=== PATIENT | male | born 1980 | race Two or more races ===

== ENCOUNTER 2024-12-11 13:34 | Outpatient (REF) | payer MEDICAID, SELFPAY ==
--- NOTE | ~2024-12-11 | XR_ITS ---
EXAMINATION: XR RIBS 3 VIEWS MINIMUM WITH CHEST LEFT HISTORY: INJURY COMPARISON: There are no prior studies available for comparison. FINDINGS: PA views of the chest and 3 views of the left ribs are submitted. A left-sided port is noted with its tip in the superior vena cava. The lungs are expanded and clear. There is no pleural effusion, pneumothorax, or pulmonary vascular congestion. The heart is normal in size. The bones are intact. No left-sided rib fracture is seen. XR/XR ribs LT min 3V w CXR1V IMPRESSION: No evidence of fracture of the left ribs. Electronically signed by: Sunil Quick MD 12/11/2024 02:21 PM EDT
--- OUTSIDE RECORDS SUMMARY | 2024-12-11 14:22 | XMS_ITS | Encounter Summary ---
Author Organization [employer] Address [address] [facility] [address] [place] [address] Care Team Providers Care Instructor Military Science Name Role Phone Unavailable Primary Care Provider Unavailabl e Encounter Details Date Type Department Care Team (Latest Contact Info) Description 12/11/2024 Travel Social History Tobacco Use Types Packs/Day Years Used Date Smoking Tobacco: Every Day Cigarettes Passive Smoke Exposure: Past Smokeless Tobacco: Never Alcohol Use Standard Drinks/Week Comments Yes 0 (1 standard drink = 0.6 oz pur e alcohol) Sex and Gender Information Value Date Recorded Sex Assigned at Male 09/18/2024 11:22 AM EDT Legal Sex Male 11:15 AM EDT Gender Identity Male 09/18/2024 11:22 AM EDT Sexual Orientation Straight 09/18/2024 11 :22 AM EDT documented as of this encounter Plan of Treatment Upcoming Encounters Date Type Department Care Team (Late st Contact Info) Description 12/28/2024 9:00 AM EDT Office Visit [facility] MEDICINE [address] [place] [address] Susannah Ryan MD [address] [place] [phone] 01/02/2025 3:15 PM EDT Office Visit [facility] ADULT DENTAL [address] [place] [address] Rudolph Carrero, BRANDEE [address] [place] [address] documented as of this encounter Visit Diagnoses Not on filedocumented in this encounter Care Teams Instructor Military Science Relationship Specialty Start Date End Date Horacio Brooks MD [facility] Hematology/Oncology 12/11/24 documented as of this encounter
== END 2024-12-11 13:35 | disposition home or self-care (01) ==
LOC: HO.HHCX 13:34
PROVIDERS: Visit Provider Family Medicine
DX: S20.212A Contusion of left front wall of thorax, initial encounter (principal)
CPT/HCPCS: 71101

== ENCOUNTER → 2024-12-11 13:40 | Outpatient (BNV) | payer MEDICAID, SELFPAY | PROVIDERS: Visit Provider Radiology Diagnostic Radiology | DX: S29.9XXA Unspecified injury of thorax, initial encounter (principal) | CPT/HCPCS: 71101 ==

== ENCOUNTER 2024-12-28 09:30 | Outpatient (REF) | payer MEDICAID, SELFPAY ==
--- OUTSIDE RECORDS SUMMARY | 2024-12-28 09:34 | XMS_ITS | Clinical Summary ---
Author Organization [employer] Address [address] [facility] [address] [place] [address] Care Team Providers Care Glass Fitter Name Role Phone Susannah Ryan MD Primary Care Provider [phone] Allergies Active Allergy Reactions Criticality Noted Date Comments Morphine 09/18/2024 Medications prochlorperazi ne (Compazine) 10 MG tablet TAKE 1 TABLET BY MOUTH THREE TIMES DAILY NEEDED FOR NAUSEA AND VOMITING 025 Discontinued(Me d list cleanup (will not trigger notification to Pharmacy)) gabapentin (Neurontin) 100 MG capsule Take by mouth. 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 Came from [place] to [facility] 08/2024. LAURA, [id number]. Followed with Dr. Horacio Brooks MD at [facility]. On neoadjuvant FOLFOX regimen for 4 cycles starting 11/14/24. Assessment & Plan (12/11/2024 2:03 PM EDT): Diagnosed with proximal rectal or rectosigmoid adenocarcinoma in [place] 12/2023, s/p neoadjuvant chemotherapy, most probably on FOLFOX from 03/2024-05/2024. Ex lab done with no resection in [place]. Came from [place] to [facility] 08/2024. LAURA, [id number]. Followed with Dr. Horacio Brooks MD at [facility]. On neoadjuvant FOLFOX regimen for 4 cycles starting 11/14/24. He reports he does not have a PCP. Referred to colorectal by oncology 11/27/24. Will schedule RAFA. Encounters Date Type Department Care Team Description 12/28/2024 9:00 AM EDT Office Visit [address] [address] Susannah Ryan MD Overweight (Primary Dx); Dietary counseling; Exercise counseling 12/28/2024 Travel 12/26/2024 [place] [address] Susannah Ryan MD chart prep 12/21/2024 [place] [address] Susannah Ryan MD Care Coordination ([facility] outreach for SDOH housing search-referral completed ) 12/21/2024 Patient Outreach [address] [address] Susannah Ryan MD Pre-visit Planning (SDOH Screening positive and Tobacco screening negative) 12/11/2024 1:00 PM EDT Office Visit [facility] WALK-IN [address] [address] Betty Mckeon MD Contusion of rib, left, initial encounter (Primary Dx); Colorectal cancer (CMS/HCC) 12/11/2024 Results Follow-Up [facility] [address] [address] Betty Mckeon MD XR Ribs 3 Views Left w/ Chest 12/11/2024 Orders Only [address] [address] Betty Mckeon MD 12/11/2024 Travel 12/03/2024 10:30 AM EDT Office Visit [facility] ADULT DENTAL [address] [place] [address] Andino-Swift Eda, DDS Dental caries (Primary Dx) 10/19/2024 10:30 AM EDT Office Visit [facility] ADULT DENTAL [address] [place] [address] Thu-Swift , Eda, DDS Bruxism (Primary Dx); Encounter for dental examination; Dental caries; Excessive attrition of teeth from Last 3 Months Family History Medical History Relation Name Comments Colon cancer Father Relation Name Status Comments Father Social History Tobacco Use Types Packs/Day Years Used Date Smoking Tobacco: Every Day Cigarettes Passive Smoke Exposure: Past Smokeless Tobacco: Never Tobacco Cessation:Ready to Q uit: Not Asked Alcohol Use Standard Drinks/Week Comments Yes 0 (1 standard drink = 0.6 oz pur e alcohol) Depression Answer Date Recorded Patient Health Questionnaire-9 Score 0 12/28/2024 Patient Health Questionnaire-9 Score 0 12/28/2024 Last PHQ-9: Questionnaire Data Not on file 0 12/28/2024 Housing Stability Answer Date Recorded What is your housing situation today? I do not have housing (Staying with others, in a hotel, in a fpc, living outside on the street, on a beach, in a car, or in a park 12/21/[address] you li ve. Do you have problems with any of the following? None of the above 12/21/2024 Food Insecurity Answer Date Recorded Within the past 12 months, y ou worried that your food would run out before you got money to buy more: Sometimes True 2024 Within the past 12 months,th e food you bought just didn't last and you didn't have enough money to get more: Sometimes True 12/21/2024 Transportation Answer Date Recorded In the past 12 months, has l ack of transportation kept you from medical appts, meetings, work or from getting things needed for daily living? No 12/21/2024 Utilities Answer Date Recorded In the past 12 months, has t he electric, gas, oil or water company threatened to shut off services in your home? No 12/21/2024 Depression Answer Date Recorded Patient Health Questionnaire-2 Score 0 12/28/2024 Internet Access Answer Date Recorded Internet Access Q1 Yes 12/21/2024 Internet Access Q2 Not on file 12/21/2024 Sex and Gender Information Value Date Recorded Sex Assigned at Male 09/18/2024 11:22 AM EDT Legal Sex Male 11:15 AM EDT Gender Identity Male 09/18/2024 11:22 AM EDT Sexual Orientation Straight 09/18/2024 11 :22 AM EDT Last Filed Vital Signs Vital Sign Reading Time Taken Comments Blood Pressure 110/60 12/28/2024 9:11 AM EDT Pulse 61 12/28/2024 9:11 AM EDT Temperature 36.4 C (97.5 F) 12/28/2024 9:11 AM EDT Respiratory Rate 20 12/28/2024 9:11 AM EDT Oxygen Saturation 99% 12/28/2024 9:11 AM EDT Inhaled Oxygen Concentration - - Weight 82.8 kg (182 lb 9.6 oz) 12/28/2024 9:11 A M EDT Height 180.3 cm (5' 11 ) 12/28/2024 9:11 AM EDT Body Mass Index 25.47 12/28/2024 9:11 AM EDT Plan of Treatment Upcoming Encounters Date Type Department Care Team ([facility] st Contact Info) Description 01/02/2025 3:15 PM EDT Office Visit [facility] ADULT DENTAL [address] [place] [address] Rudolph Carrero, DMD [address] [place] [address] Health Maintenance Due Date Last Done Comments Dental Prophylaxis 1980 Depression Screening 1980 HIV Screening 1980 Lipid Panel 1980 Disability Screening 1980 Alcohol/Substance Use Screening 1992 Family Planning (PISQ) 1995 HPV Vaccines (1 - Male 3-dos e series) 1995 Hepatitis C Screening 1998 DTaP/Tdap/Td Vaccines (1 - Tdap) 1999 Hepatitis B Vaccines (1 of 3 - 19+ 3-dose series) 1999 Pneumococcal Vaccine: Pediatrics (0 to 5 Years) and At-Risk Patients (6 to 49) Years (1 of 2 - PCV) 1999 COVID-19 Vaccine (1 - 2023-2 5 season) 2024 Influenza Vaccine (#1) 2025 Dental Oral Exam 04/21/2025 10/19/2024 Dental X-Ray: Bitewings 10/20/2025 10/19/2024 Tobacco Screening 12/11/2025 12/11/2024 SDOH Screening 12/21/2025 12/21/2024 Dental X-Ray: Full Mouth 10/21/2027 025, 09/18/2024 Zoster Vaccines (1 of 2) 2030 RSV Patients and Patients Aged 60 years or older (1 - 1-dose 75+ series) 2055 HIB Vaccines Aged Out No longer eligi ble based on patient's age to complete this topic Hepatitis A Vaccines Aged Out No long er eligible based on patient's age to complete this topic IPV Vaccines Aged Out No longer eligi ble based on patient's age to complete this topic Meningococcal B Vaccine Aged Out No l onger eligible based on patient's age to complete this topic Meningococcal Vaccine Aged Out No isabelle raghav eligible based on patient's age to complete this topic RSV under 20 months Aged Out No longe r eligible based on patient's age to complete this topic Rotavirus Vaccines Aged Out No longer eligible based on patient's age to complete this topic Procedures Procedure Name Priority Date/Time Associated Diagnosis Comments XR RIBS 3 VIEWS LEFT W CHEST Routine 12/11/2024 1:40 PM EDT CASE PRESENTATION, DETAILED AND EXTENSIVE TREATMENT PLANNING Routine 12/03/2024 10:30 AM EDT Dental caries 21 RESIN-BASED COMPOSITE - 3 SURF, POSTERIOR Routine 12/03/2024 10:30 AM EDT Dental caries CASE PRESENTATION, DETAILED AND EXTENSIVE TREATMENT PLANNING Routine 10/19/2024 10:30 AM EDT INTRAORAL - COMPLETE SERIES OF RADIOGRAPHIC IMAGES Routine 10/19/2024 10:30 AM EDT COMPREHENSIVE ORAL EVALUATION - NEW OR ESTABLISHED PATIENT Routine 10/19/2024 10:30 AM EDT 3 LL(V)O AMALGAM FILLING Routine 10/19/2024 12:00 AM EDT 13 MO AMALGAM FILLING Routine 10/19/2024 12:00 AM EDT 12 MOD AMALGAM FILLING Routine 12:00 AM EDT from Last 3 Months Results * XR Ribs 3 Views Left w/ Chest (12/11/2024 1:40 PM EDT) Anatomical Region Laterality Modality Radiographic Trudi ging 12/11/2024 1:40 PM EDT Narrative 12/11/2024 2:24 PM EDT [address] XRay Report Signed Patient: Jose Armando Luther MR#: [id number] : 1980 Acct:[id number] Age/Sex: 44 / M ADM Date: 12/11/24 Loc: [facility] Attending Dr: Betty Mkceon MD Ordering Physician: Betty Mckeon MD Date of Service: 12/11/24 Procedure(s): XR ribs LT min 3V w CXR1V Accession Number(s): [id number] cc: Betty Mckeon MD EXAMINATION: XR RIBS 3 VIEWS MINIMUM WITH CHEST LEFT HISTORY: INJURY COMPARISON: There are no prior studies available for comparison. FINDINGS: PA views of the chest and 3 views of the left ribs are submitted. A left-sided port is noted with its tip in the superior vena cava. The lungs are expanded and clear. There is no pleural effusion, pneumothorax, or pulmonary vascular congestion. The heart is normal in size. The bones are intact. No left-sided rib fracture is seen. XR/XR ribs LT min 3V w CXR1V IMPRESSION: No evidence of fracture of the left ribs. Electronically signed by: Sunil Quick MD 12/11/2024 02:21 PM EDT Dictated By: Sunil Quick MD Signed By: <Electronically signed by Sunil Quick MD in OV> 12/11/24 1421 DD/ 1340 TD/TT: 12/11/24 1340 Gluer And Wedger: Procedure Note Donotuseinterpreter, Image - 12/11/[address] [address] XRay Report Signed Patient: Jose Armando LutherMR#: [id number] : 1980Acct:[id number] Age/Sex: 44 / MADM Date: 12/11/24 Loc: [facility] Attending Dr: Betty Mckeon MD Ordering Physician: Betty Mckeon MD Date of Service: 12/11/24 Procedure(s): XR ribs LT min 3V w CXR1V Accession Number(s): [id number] cc: Betty Mckeon MD EXAMINATION: XR RIBS 3 VIEWS MINIMUM WITH CHEST LEFT HISTORY: INJURY COMPARISON: There are no prior studies available for comparison. FINDINGS: PA views of the chest and 3 views of the left ribs are submitted. A left-sided port is noted with its tip in the superior vena cava. The lungs are expanded and clear. There is no pleural effusion, pneumothorax, or pulmonary vascular congestion. The heart is normal in size. The bones are intact. No left-sided rib fracture is seen. XR/XR ribs LT min 3V w CXR1V IMPRESSION: No evidence of fracture of the left ribs. Electronically signed by: Sunil Quick MD 12/11/2024 02:21 PM EDT RP Dictated By: Sunil Quick MD Signed By: <Electronically signed by Sunil Quick MD in OV> 12/11/24 1421 DD/ 1340 TD/TT: 12/11/24 1340 Gluer And Wedger: Betty Mckeon MD IMG XR PROCEDURES Edited R esult - Final from Last 3 Months Insurance [facility] ST[place] ADULT Care Teams Glass Fitter Relationship Specialty Start Date End Date Susannah Ryan MD [address] [place] [id number] PCP - General Family Medicine 12/28/24 Horacio Brooks MD [facility] Hematology/Oncology 12/11/24
[2024-12-28 12:24] LABS: Hemoglobin A1C 116.4708 umol/L; Total Hemoglobin (HGBA1C) 3077.8622 umol/L
[2024-12-28 12:32] LABS: Alanine Aminotransferase 18 U/L (0-40); Albumin Level 3.9 g/dL (3.5-5.0); Alkaline Phosphatase 98 U/L (39-117); Anion Gap 10 (12-20); Aspartate Amino Transferase 31 U/L (5-37); Blood Urea Nitrogen 9 mg/dL (9-16); Calcium 8.7 mg/dL (8.4-10.2); Carbon Dioxide 27 mmol/L (22-29); Chloride 108 mmol/L (96-108); Cholesterol 136 mg/dL (<200); Estimated Glomerular Filt Rate > 60; HDL Cholesterol 47 mg/dL (>40); Potassium 3.8 mmol/L (3.3-5.1); Sodium 141 mmol/L (135-145); Total Protein 6.6 g/dL (6.5-8.0); Triglycerides 85 mg/dL (<150)
== END 2024-12-28 09:31 | disposition home or self-care (01) ==
LOC: HO.HHCL 09:30
PROVIDERS: General Practice; PCP Family Medicine; Visit Provider Family Medicine
DX: E66.3 Overweight (principal)
CPT/HCPCS: 36415; 80053; 80061; 83036

== ENCOUNTER 2025-01-31 05:03 | Inpatient (IN) | payer MEDICAID, SELFPAY ==
[2025-01-31] VITALS (11 sets, daily range): BP systolic 114–143; BP diastolic 70–89; PULSE 74–115; RESP 16–22; TEMP 36–36.9; O2SAT 93–99; BMI 24.7; BMI 24.2
--- NOTE | 2025-01-31 | ECG_ITS ---
Test Reason : PREOP Blood Pressure : */* mmHG Vent. Rate : 81 BPM Atrial Rate : 81 BPM P-R Int : 162 ms QRS Dur : 92 ms QT Int : 402 ms P-R-T Axes : 66 -21 53 degrees QTcB Int : 466 ms Normal sinus rhythm Nonspecific T wave abnormality Prolonged QT Abnormal ECG No previous ECGs available Referred By: Dahlia Treviño Electronically Signed By: Khadar Vance
--- NOTE | ~2025-01-31 | XR_ITS ---
CLINICAL HISTORY: cough, on chemo, r o pna 1 view chest x-ray. Comparison: CR/SR - XR RIBS 3 VIEWS MINIMUM WITH CHEST LEFT - 12/11/24 14:00 EDT Findings: Normal lung volumes. New small patchy airspace disease left lower lobe probably pneumonic. No pneumothorax or pleural effusion. Heart size normal. No passive venous congestion. No midline shift or tracheal deviation. No acute fracture. Left-sided tunneled venous catheter tip SVC. Impression: 1. New small patchy airspace disease left lower lobe probably pneumonic. No parapneumonic effusion. This document has been electronically signed by: Matt Cunningham MD on 01/31/2025 06:47:49
--- NOTE | ~2025-01-31 | CT_ITS ---
CLINICAL HISTORY: bilat abd pain, hx colon ca CT abdomen and pelvis with IV contrast Comparison: None Findings: Reticular nodular opacities left lower lobe probably inflammatory can not exclude aspiration pneumonitis. Subsegmental atelectasis right base. No dependent layering pleural effusions. The heart is not enlarged. Coronary artery calcifications: None. Liver normal size and contour. No focal hepatic lesions. Patent hepatic and portal veins. Physiologic distention of the gallbladder with no radiopaque gallstones. Homogeneous enhancement of the pancreas. No splenomegaly. Normal adrenal glands. Symmetrical renal excretion with no segmental or diffuse renal parenchymal disease or evidence of obstructive uropathy/hydroureteronephrosis. Normal caliber abdominal aorta. Marked colonic distention fluid-filled down to level of the sigmoid colon which is partially decompressed with mural thickening. There is a probable stenosis or colonic mass distal sigmoid colon. Correlate with any recent colonoscopy. There is a obstructive component present.No free air or portal venous air. Air is seen outlining the colonic contents of the right hemicolon probably intraluminal but pneumatosis intestinalis can not be excluded. Appendix not identified. Mildly distended fluid-filled loops of small bowel no significant diverticular disease.Shotty mesenteric lymph nodes partially decompressed urinary bladder. Mild prostatomegaly. No vertebral body compression fractures or spondylolisthesis. No bony destructive lesions. Impression: 1. Distal colonic obstruction with a probable stricture/mass distal sigmoid colon. Mildly distended fluid-filled loops of mid and distal small bowel. Air is noted outlining the fecal contents in the colon probably intraluminal rather than pneumatosis intestinalis which can not be entirely excluded. Heavy stool burden. No free air or portal venous air is demonstrated. Clinical correlation. 2. Reticular nodular opacities left lower lobe probably inflammatory can not exclude aspiration pneumonitis. This document has been electronically signed by: Matt Cnuningham MD on 01/31/2025 08:03:12
[2025-01-31 05:27] LABS: Hematocrit 39.5 % (42.0-52.0); Hemoglobin 13.6 g/dl (14.0-18.0); Imm Gran Abs Auto 0.08 X10*3/uL (0.00-0.03); Imm Gran Pct Auto 0.6 % (0.0-0.4); Lymphocytes Absolute Auto 2.1 X10*3/uL (1.2-4.9); MANUAL DIFF FLAG NO; Mean Corpuscular HGB Conc 34.4 g/dl (31.0-36.0); Mean Corpuscular Hemoglobin 29.0 pg (27.0-33.0); Mean Corpuscular Volume 84.2 fL (80.0-98.0); NRBC Abs Auto 0.040 X10*3/uL (0.0-0.012); NRBC Pct Auto 0.3 /100WBC (0.0-0.2); Platelet Count 278 X10*3/uL (160-400); Red Blood Count 4.69 X10*6/uL (4.60-5.80); White Blood Count 13.0 X10*3/uL (4.8-10.8)
[2025-01-31 05:40] LABS: Alanine Aminotransferase 8 U/L (0-40); Albumin Level 4.6 g/dL (3.5-5.0); Alkaline Phosphatase 113 U/L (39-117); Anion Gap 20 (12-20); Aspartate Amino Transferase 24 U/L (5-37); Blood Urea Nitrogen 17 mg/dL (9-16); Calcium 9.6 mg/dL (8.4-10.2); Carbon Dioxide 26 mmol/L (22-29); Chloride 95 mmol/L (96-108); Creatinine Clr Calc Pharmacy 87.3; Estimated Glomerular Filt Rate > 60; Lipase 16 U/L (8-78); Potassium 3.1 mmol/L (3.3-5.1); Sodium 138 mmol/L (135-145); Total Protein 8.3 g/dL (6.5-8.0)
[2025-01-31 05:41] LABS: IDNOW Serial# 55D5AD1C; Influenza B2 Negative (Negative)
[2025-01-31 05:42] LABS: COVID-19 Test Negative (Negative); IDNOW Serial# 58CA691E
--- NOTE | 2025-01-31 05:44 | ED.ABDPAIN ---
HPI - Abdominal Pain General Chief Complaint: Abdominal Pain Stated Complaint: Abdominal Pain Time Seen by Provider: 01/31/25 05:22 Source: patient Mode of arrival: ambulatory Limitations: no limitations History of Present Illness ED Provider: Dr. Marimar Madera HPI narrative: Patient comes to the emergency room complaining to to 3 days of abdominal pain. Patient states that is worse in bilateral lower quadrants, no hematuria dysuria. Patient states that he has history of colon cancer and is currently getting chemotherapy. Patient is scheduled for abdominal surgery/intestinal resection in a near future. Patient states that he also has been having cough and sore throat. Denies fever chills. Related Data Allergies Allergy/AdvReac Type Severity Reaction Status Date / Time morphine Allergy Anaphylaxis Verified 01/31/25 05:06 Review of Systems Review of Systems Constitutional : No Weight loss, No Fever, No Chills, No Night Sweats, No Fatigue, No Malaise ENT/Mouth : No Hearing loss, No Ear Pain, No Nasal Congestion, No Sinus Pain, No Hoarseness, No sore throat, No Rhinorrhea, No Swallowing Difficulty Eyes: No Eye Pain, No Swelling, No Redness, No Foreign Body, No Discharge, No Vision Changes Cardiovascular : No Chest Pain, No SOB, No Dyspnea on Exertion, No Orthopnea, No Edema, No Palpitations Respiratory : Complaining of productive cough, No Wheezing, No Smoke Exposure, No Dyspnea Gastrointestinal : Complaining of nausea and vomiting, No Diarrhea, complaining of abdominal pain Genitourinary : no irregular bleeding, No Dysuria, No Urinary Frequency, No Hematuria, No Urinary Incontinence, No Urgency, No Flank Pain, No Urinary Flow Changes, No Hesitancy Musculoskeletal : No joint pain, No Myalgias, No Joint Swelling Skin : No Skin Lesions, No rash Neuro : No Weakness, No Numbness, No Paresthesias, No Loss of Consciousness, No Dizziness, No Headache Psych : No Anxiety/Panic, No Depression, No SI/HI/AH/VH, No Social Issues, Heme/Lymph: No Bruising, No Bleeding,No Lymphadenopathy Endocrine : No Polyuria, No Polydipsia, No Temperature Intolerance [facility] Past Medical History Medical History (Updated 01/31/25 @ 07:18 by Marimar Madera MD) Colorectal cancer Social History Social History (System 12/13/24 @ 08:40 by Ashley Acuna) Alcohol intake: current Alcohol intake frequency: holidays/special occasions only Smoked in Last 30 Days: Yes Use of substances other than those prescribed or required for medical reasons: No Advance Directives: No Advance Directives Information Provided: Yes Physical Exam ED Exam Exam: Appearance: Alert. Oriented X3. Seems very uncomfortable Eyes: Pupils equal, round and reactive to light. ENT: Pharynx normal. Neck: Normal inspection. Neck supple. No lymph nodes noted. No crepitus CVS: Normal heart rate and rhythm. Pulses normal. Normal S1 and S2 Respiratory: No respiratory distress. Breath sounds normal. No Wheezing. No rales Abdomen: Soft, tenderness to palpation in bilateral lower quadrants, mild rebound, no guarding, No rigidity. Mild diffuse abdominal distention. Skin: Skin warm and dry. Normal skin color. Normal skin turgor. Extremities: No lower extremity edema. No Lacerations. No Rash Neuro: Oriented X 3. No motor deficit. No sensory deficit. Moving all extremities. No slurred speech. CN 2 through 12 grossly intact Psych: calm, cooperative, normal affect Vital Signs: Vital Signs - 24 hr 01/31/25 05:06 Temperature 98.2 F Pulse Rate 115 H Respiratory Rate 16 Blood Pressure 138/70 Pulse Oximetry 94 Oxygen Delivery Method Room Air BMI result Body Mass Index 24.7 Course Course Course Narrative: Patient receiving IV fluids, Zofran, fentanyl. Patient has anaphylaxis to morphine. All of patient's labs and imaging pending. Medical Decision Making Medical Decision Making [facility] Narrative: My interpretation of labs: Patient's white blood cell count 13, chemistry shows a potassium of 3.1, being repleted IV, LFTs within normal limits, lipase normal, serology negative for COVID and influenza Chest x-ray: Possible pneumonia. Patient is receiving Zosyn empirically. CT scan of the abdomen: Radiology report pending. The patient has an obvious obstruction. Patient already received Zosyn, fluids, fentanyl for pain. NG tube will be inserted Patient's blood pressure is stable, no fever, normal white blood cell count. At this time, 07:18, sepsis is not suspected I discussed the above-mentioned with ILANA Holliday from surgery, patient to be seen and admitted by surgery I discussed the above-mentioned with the patient, agrees with plan of being admitted. Differential Diagnosis Differential Diagnoses: The differential diagnosis associated with the presentation includes (Small-bowel obstruction, constipation, malignancy, bowel perforation) Admission/Observation Consideration of admission/observation: Escalation of care including admission/observation considered Consult Healthcare Provider Management of the patient was discussed with: Hospitalist Lab Data MDM Lab Attestation statement: I reviewed the patient's lab results. 01/31/25 05:20 01/31/25 05:20 Labs: Lab Results 01/31/25 Range/Units 05:20 WBC 13.0 H (4.8-10.8) X10*3/uL RBC 4.69 (4.60-5.80) X10*6/uL Hgb 13.6 L (14.0-18.0) g/dl Hct 39.5 L (42.0-52.0) % MCV 84.2 (80.0-98.0) fL MCH 29.0 (27.0-33.0) pg MCHC 34.4 (31.0-36.0) g/dl RDW 17.1 H (11.0-16.0) % Plt Count 278 (160-400) X10*3/uL MPV 9.2 L (9.4-12.4) fL Immature Gran % (Auto) 0.6 H (0.0-0.4) % Neut % (Auto) 76.3 H (45-73) % Lymph % (Auto) 16.3 L (20-40) % Camas % (Auto) 6.1 (2-11) % Eos % (Auto) 0.3 (0-4) % Baso % (Auto) 0.4 (0-2) % Lymph # (Auto) 2.1 (1.2-4.9) X10*3/uL Camas # (Auto) 0.8 (0.1-1.2) X10*3/uL Eos # (Auto) 0.0 (0.0-0.4) X10*3/uL Baso # (Auto) 0.1 (0.0-0.2) X10*3/uL Abs Immat Gran (auto) 0.08 H (0.00-0.03) X10*3/uL Absolute Neuts (auto) 10.0 H (2.0-8.3) x10*3/uL Absolute Nucleated RBC 0.040 H (0.0-0.012) X10*3/uL Nucleated RBC % (auto) 0.3 H (0.0-0.2) /100WBC Sodium 138 (135-145) mmol/L Potassium 3.1 L (3.3-5.1) mmol/L Chloride 95 L (96-108) mmol/L Carbon Dioxide 26 (22-29) mmol/L Anion Gap 20 (12-20) BUN 17 H (9-16) mg/dL Creatinine 1.15 (0.5-1.4) mg/dL Estim Creat Clear Calc 87.3 Estimated GFR > 60 Random Glucose 142 H (60-115) mg/dL Calcium 9.6 D (8.4-10.2) mg/dL Total Bilirubin 1.1 H (0.0-1.0) mg/dL AST 24 (5-37) U/L ALT 8 (0-40) U/L Alkaline Phosphatase 113 (39-117) U/L Total Protein 8.3 H (6.5-8.0) g/dL Albumin 4.6 (3.5-5.0) g/dL Lipase 16 (8-78) U/L COVID-19 (TRICIA) Negative (Negative) COVID-19 Clin Com See Note Influenza Type A (MARCIA) Negative (Negative) Influenza Type B (MARCIA) Negative (Negative) Influenza A & B Note See Note Independent Interpretation I performed an independent interpretation of an: Plain X-Ray and CT Scan Radiology Impression Discussion of test interpretation with radiology: I have reviewed the radiologist's reading. Radiologist Impression: New small patchy airspace disease left lower lobe probably pneumonic. No parapneumonic effusion. Medications Administered Generic Name Dose Route Start Last Admin Trade Name Freq PRN Reason Stop Dose Admin Potassium Chloride 10 meq in 100 mls @ 100 mls/hr 01/31/25 06:15 01/31/25 06:19 Potassium Chloride/H20 IV 01/31/25 08:14 100 mls/hr Q1H KEYANNA Administration Discontinued Medications Generic Name Dose Route Start Last Admin Trade Name Freq PRN Reason Stop Dose Admin Fentanyl 50 mcg 01/31/25 05:42 01/31/25 05:49 Fentanyl Citrate/Pf 100 Mcg/2 Ml Vial IVPUSH 01/31/25 05:43 50 mcg ONCE ONE Administration Protocol Sodium Chloride 1,000 mls @ 999 mls/hr 01/31/25 05:40 01/31/25 05:49 Ns IVCONT 01/31/25 06:40 999 mls/hr .Q1H1M ONE Administration Iohexol 85 ml 01/31/25 06:34 01/31/25 06:36 Iohexol 350 Mg/Ml 100 Ml Infus..Btl IV 01/31/25 06:35 85 ml ONCE ONE Administration Ondansetron HCl 4 mg 01/31/25 05:40 01/31/25 05:49 Ondansetron Hcl 4 Mg/2 Ml Vial IVPUSH 01/31/25 05:41 4 mg ONCE ONE Administration Critical Care Time Critical Care Time Critical Care Time: Yes Total Critical Care Time: 60 Attestation: I have personally provided critical care time. Time includes review of lab data, radiology results, discussion with consultants, and monitoring for potential decompensation. Intervention performed as documented. Discharge Plan Discharge Clinical Impression: Bowel obstruction, Acute hypokalemia, Pneumonia Patient Disposition: Admitted As Inpatient Print Language: Swiss
[2025-01-31] MEDS: Potassium Chloride/H20 10 MEQ/100 ML PIGGYBACK 100 MEQ IV ×2 (06:19→07:32)
--- OUTSIDE RECORDS SUMMARY | 2025-01-31 06:23 | XMS_ITS | Clinical Summary ---
Author Organization [employer] Address [address] [facility] [address] [place] [address] Care Team Providers Care Vending Machine Collector Name Role Phone Susannah Ryan MD Primary Care Provider [phone] Allergies Active Allergy Reactions Criticality Noted Date Comments Morphine 09/18/2024 Medications No known medications Active Problems Problem Noted Date Diagnosed Date Housing situation unstable 12/28/2024 Food insecurity 12/28/2024 Colorectal cancer 12/11/2024 Overview (12/11/2024): Diagnosed with proximal rectal or rectosigmoid adenocarcinoma in [place] 12/2023, s/p neoadjuvant chemotherapy, most probably on FOLFOX from 03/2024-05/2024. Came [place] to [facility] 08/2024. LAURA, [id number]. Followed with Dr. Horacio Brooks MD at [facility]. On neoadjuvant FOLFOX regimen for 4 cycles starting 11/14/24. Assessment & Plan (12/11/2024 2:03 PM EDT): Diagnosed with proximal rectal or rectosigmoid adenocarcinoma in [place] 12/2023, s/p neoadjuvant chemotherapy, most probably on FOLFOX from 03/2024-05/2024. Ex lab done with no resection in [place]. [place]ame [place] to area 08/2024. LAURA, [id number]. Followed with Dr. Horacio Brooks MD at [facility]. On neoadjuvant FOLFOX regimen for 4 cycles starting 11/14/24. He reports he does not have a PCP. Referred to colorectal by oncology 11/27/24. Will schedule RAFA. Encounters Date Type Department Care Team Description 12/28/2024 9:00 [place] [address] Susannah Ryan MD Colorectal cancer (CMS/HCC) (Primary Dx); Overweight; Dietary counseling; Exercise counseling; Housing situation unstable; Food insecurity 12/28/2024 Travel 12/26/2024 [place] [address] Susannah Ryan MD chart prep 12/21/2024 [place] [address] Susannah Ryan MD Care Coordination (CHW outreach for SDOH housing search-referral completed ) 12/21/2024 [place] [address] Susannah Ryan MD Pre-visit Planning (SDOH Screening positive and Tobacco screening negative) 12/11/2024 1:00 PM EDT Office Visit [facility] [address] [place] [address] Betty Mckeon MD Contusion of rib, left, initial encounter (Primary Dx); Colorectal cancer (CMS/HCC) 12/11/2024 Results Follow-Up [facility] [place] [address] Betty Mckeon MD XR Ribs 3 Views Left w/ Chest 12/11/2024 Orders Only [address] [address] Betty Mckeon MD 12/11/2024 Travel 12/03/2024 10:30 AM EDT Office Visit [facility] [address] [place] [address] Eda Parker DDS Dental caries (Primary Dx) from Last 3 Months Family History Medical History Relation Name Comments Colon cancer Father Relation Name Status Comments Father Social History Tobacco Use Types Packs/Day Years Used Date Smoking Tobacco: Every Day Cigarettes Passive Smoke Exposure: Past Smokeless Tobacco: Never Tobacco Cessation:Ready to Q uit: Not Asked; Counseling Given: Not Answered Alcohol Use Standard Drinks/Week Comments Yes 0 [...] with others, in a hotel, in a senior living, living outside on the street, on a [...] 12/28/2024 9:11 AM EDT Plan of Treatment Health Maintenance Due Date Last Done Comments Dental Prophylaxis 1980 HIV Screening 1980 Family Planning (PISQ) 1995 HPV Vaccines (1 - Male 3-dos e series) 1995 Hepatitis C Screening 1998 DTaP/Tdap/Td Vaccines (1 - Tdap) 1999 Hepatitis B Vaccines (1 of 3 - 19+ 3-dose series) 1999 Pneumococcal Vaccine: Pediatrics (0 to 5 Years) and At-Risk Patients (6 to 49) Years (1 of 2 - PCV) 1999 COVID-19 Vaccine (1 - 2023-2 5 season) 2025 Influenza Vaccine (#1) 2025 Dental Oral Exam 04/21/2025 10/19/2024 Dental X-Ray: Bitewings 10/20/2025 10/19/2024 SDOH Screening 12/21/2025 12/21/2024 Alcohol/Substance Use Screening 12/28/2025 12/28/2024 Depression Screening 12/28/2025 12/28/2024, 12/28/2024 Disability Screening 12/28/2025 12/28/2024 Tobacco Screening 12/28/2025 12/28/2024 Dental X-Ray: Full Mouth 10/21/2027 025, 09/18/2024 Lipid Panel 12/28/2029 12/28/2024 Zoster Vaccines (1 of 2) 2030 RSV [...] Procedure Name Priority Date/Time Associated Diagnosis Comments COVID-19 ID NOW (CHOI) Routine 01/31/2025 5:20 AM EDT LIPASE Routine 01/31/2025 5:20 AM EDT COMPREHENSIVE METABOLIC PANEL Routine 01/31/2025 5:20 AM EDT CBC WITH AUTO DIFFERENTIAL Routine 01/31/2025 5:20 AM EDT INFLUENZA A B2 ID NOW (CHOI) Routine 01/31/2025 5:20 AM EDT COMPREHENSIVE METABOLIC PANEL Routine 12/28/2024 9:35 AM EDT Overweight HEMOGLOBIN A1C Routine 12/28/2024 9:35 AM EDT Overweight LIPID PANEL, STANDARD Routine 12/28/2024 9:35 AM EDT Overweight XR RIBS 3 VIEWS LEFT W CHEST Routine 12/11/2024 1:40 PM EDT CASE PRESENTATION, DETAILED AND EXTENSIVE TREATMENT PLANNING Routine 12/03/2024 10:30 AM EDT Dental caries 21 RESIN-BASED COMPOSITE - 3 SURF, POSTERIOR Routine 12/03/2024 10:30 AM EDT Dental caries INTRAORAL - COMPLETE SERIES OF RADIOGRAPHIC IMAGES Routine 10/19/2024 10:30 AM EDT COMPREHENSIVE ORAL EVALUATION - NEW OR ESTABLISHED PATIENT Routine 10/19/2024 10:30 AM EDT from Last 3 Months or Most Recently Relevant to Health Maintenance Results * Influenza A B2 ID NOW (Choi) (01/31/2025 5:20 AM EDT) IDNOW SERIAL# [id number] [facility] Influenza A Negative Negative [facility] Influenza B2 Negative Negative [facility] Influenza A B2 Note See Note [facility] Comment:The Choi ID NOW In fluenza A B2 test is used for thequalitative detection of influenza A and B from patientswith signs and symptoms of respiratory infection.Negative results do not preclude influenza virus infectionand should not be used as the sole basis for diagnosis,treatment or other patient management decisions.There is a risk of false negative results due to thepresence of variants in the viral targets of the assay, lowlevels of virus in the specimen and co- infection withRespiratory Syncytial Virus. 01/31/2025 5:20 AM EDT 01/31/2025 5:26 AM EDT us Generic External Data Provider LAB MICROBIOLOGY - GENERAL ORDERABLES Final Result [facility] [address] [place] [phone] * COVID-19 ID NOW (CHOI) (01/31/2025 5:20 AM EDT) IDNOW SERIAL# [id number] [facility] COVID-19 TEST Negative Negative [facility] COVID-19 NOTE See Note [facility] Comment: Results are for the identification of SARS-CoV2 RNA. TheSARS-CoV2 RNA is generally detectable in respiratory samplesduring the acute phase of infection. Positive results areindicative of the presence of SARS-CoV-2 RNA; clinicalcorrelation with patient history and other diagnosticinformation is necessary to determine patient infectionstatus. Positive results do not rule out bacterial infectionor co- infection with other viruses.Testing facilities within the [facility] and itsterritories are required to report all positive results tothe appropriate public health authorities.Negative results should be treated as presumptive and, ifinconsistent with clinical signs and symptoms or necessaryfor patient management, should be tested with differentauthorized or cleared molecular tests. Negative results donot preclude SARS-CoV2 RNA infection and should not be usedas the sole basis for patient management decisions. Negativeresults should be considered in the context of a patient'srecent exposures, history and the presence of clinical signsand symptoms consistent with COVID-19.This test has been authorized by the FDA under an EmergencyUse Authorization (EUA) for use by authorized laboratories.Testing performed on the [employer] ID NOW utilizing NAAT. 01/31/2025 5:20 AM EDT 01/31/2025 5:26 AM EDT us Generic External Data Provider LAB MOLECULAR TYESHA GNOSTICS ORDERABLES Final Result [facility] [address] [place] [address] [phone] * (ABNORMAL) CBC auto differential (01/31/2025 5:20 AM EDT) White Blood Count 13.0(H) 4.8 - 10.8 X10*3/uL [facility] Red Blood Count 4.69 4.60 - 5.80 X10*6/uL [facility] Hemoglobin 13.6(L) 14.0 - 18.0 g/dl [facility] Hematocrit 39.5(L) 42.0 - 52.0 % [facility] Mean Corpuscular Volume 84.2 80.0 - 98.0 fL [facility] Mean Corpuscular Hemoglobin 29.0 27.0 - 33.0 pg [facility] Mean Corpuscular HGB Conc 34.4 31.0 - 36.0 g/dl [facility] Red Cell Distribution Width 17.1(H) 11.0 - 16.0 % [facility] Platelet Count 278 160 - 400 X10*3/uL [facility] Mean Platelet Volume 9.2(L) 9.4 - 12.4 fL [facility] Neutrophils Percent Auto 76.3(H) 45 - 73 % [facility] Imm Gran Pct Auto 0.6(H) 0.0 - 0.4 % [facility] Lymphocytes Percent Auto 16.3(L) 20 - 40 % [facility] Monocytes Percent Auto 6.1 2 - 11 % [facility] Eosinophils Percent Auto 0.3 0 - 4 % [facility] Basophils Percent Auto 0.4 0 - 2 % [facility] NRBC Pct Auto 0.3(H) 0.0 - 0.2 /100WBC [facility] Neutrophils Absolute Auto 10.0(H) 2.0 - 8.3 x10*3/uL [facility] Imm Gran Abs Auto 0.08(H) 0.00 - 0.03 X10*3/uL [facility] Lymphocytes Absolute Auto 2.1 1.2 - 4.9 X10*3/uL [facility] Monocytes Absolute Auto 0.8 0.1 - 1.2 X10*3/uL [facility] Eosinophils Absolute Auto 0.0 0.0 - 0.4 X10*3/uL [facility] Basophils Absolute Auto 0.1 0.0 - 0.2 X10*3/uL [facility] NRBC Abs Auto 0.040(H) 0.0 - 0.012 X10*3/uL [facility] 01/31/2025 5:20 AM EDT 01/31/2025 5:26 AM EDT us Generic External Data Provider LAB BLOOD ORDERAB LES Final Result Performing Organization Address [facility]/ZIP Co de Phone Number [facility] [address] [place] [address] [phone] * Lipase (01/31/2025 5:20 AM EDT) Lipase 16 8 - 78 U/L [facility] 01/31/2025 5:20 AM EDT 01/31/2025 5:26 AM EDT Generic External Data Provider LAB BLOOD ORDERAB LES Final Result Performing Organization Address [facility]/ZIP Co de Phone Number [facility] [address] [place] [phone] * (ABNORMAL) Comprehensive Metabolic Panel (01/31/2025 5:20 AM EDT) Only the most recent of2 resultswithin the time period is included. Sodium 138 135 - 145 mmol/L [facility] Potassium 3.1(L) 3.3 - 5.1 mmol/L [facility] Chloride 95(L) 96 - 108 mmol/L [facility] Carbon Dioxide 26 22 - 29 mmol/L [facility] Anion Gap 20 12 - 20 [facility] Urea Nitrogen (BUN) 17(H) 9 - 16 mg/dL [facility] Creatinine, Serum 1.15 0.5 - 1.4 mg/dL [facility] Creatinine Clr Calc Pharmacy 87.3 [facility] Comment:eGFR (calculated fro m the MDRD study equation) and eCrCl(calculated from the Cockcroft-Gault equation) are based ondifferent parameters and may not yield comparable results.If eCrCl result is absurd, please check patient'sheight/weight. Estimated Glomerular Filt Rate >60 [facility] Comment:Chronic Kidney Disea se: Estimated GFR < 60 mL/min/1.93s0Evsjwy Kidney Disease: Estimated GFR < 15 mL/min/1.73m2 Glucose 142(H) 60 - 115 mg/dL [facility] Calcium 9.6 8.4 - 10.2 mg/dL [facility] Bilirubin, Total 1.1(H) 0.0 - 1.0 mg/dL [facility] Aspartate Amino Transferase 24 5 - 37 U/L [facility] Alanine Aminotransferase 8 0 - 40 U/L [facility] Total Protein 8.3(H) 6.5 - 8.0 g/dL [facility] Albumin Level 4.6 3.5 - 5.0 g/dL [facility] Alkaline Phosphatase 113 39 - 117 U/L [facility] 01/31/2025 5:20 AM EDT 01/31/2025 5:26 AM EDT us Generic External Data Provider LAB BLOOD ORDERAB LES Final Result [facility] [address] [place] [phone] * Hemoglobin A1c (12/28/2024 9:35 AM EDT) Hemoglobin A1c 5.6 <6.0 % [facility] Comment:Hemoglobin A1C Refer ence Range Adults: 4.8 - 6.0 % Non diabetic: < 6.0 % Goal: < 7.0 %Additional Action Suggested: > 8.0 %Note: Hemoglobin A1c results are invalid for patients with abnormal amounts of HbF. Blood transfusions may impact the HbA1c concentration in the patient sample. Estimated Average Glucose 114 mg/dL [facility] Comment:eAG = Estimated ave rage glucose which is %A1C expressed asaverage glucose, using the formula of the [id number] Glucose study (ADAG), Diabetes Care, Vol.31,#8,Dec. 2007 Blood Venous blood specimen / Unknown 12/28/2024 9:35 AM EDT 12/28/2024 11:51 AM EDT us Susannah Ryan MD LAB BLOOD ORDERABLES Final Res ult Performing Organization Address [facility] Co de Phone Number [facility] [address] [place] [phone] * Lipid Panel, Standard (12/28/2024 9:35 AM EDT) Triglycerides 85 <150 mg/dL [facility] Comment:Desirable Triglyceri de: less than 150 mg/dLBorderline High Triglyceride 150-199 mg/dLHigh Triglyceride: 200-499 mg/dLVery High Triglyceride: greater than or equal to 5OO mg/dL Cholesterol 136 <200 mg/dL [facility] Comment:Desirable Cholestero l: less than 200 mg/dLBorderline High Cholesterol: 200-239 mg/dLHigh Cholesterol: greater than 239 mg/dL LDL Cholesterol Calculated 72 <100 mg/dL [facility] Comment:Desirable LDL: less than 100 mg/dLNear Optimal/Above Optimal LDL: 110- 129 mg/dLBorderline High LDL: 130-159 mg/dLHigh LDL: 160-189 mg/dLVery High LDL: greater than or equal to 190 mg/dL HDL Cholesterol 47 >40 mg/dL [facility] Comment:Desirable HDL: great er than 40 mg/dL Note: This HDL assay may give artificially low results in patients with liver disease. Blood Venous blood specimen / Unknown 12/28/2024 9:35 AM EDT 12/28/2024 11:51 AM EDT us Susannah Ryan MD LAB BLOOD ORDERABLES Final Res ult [facility] [address] [place] [phone] * XR Ribs 3 Views Left w/ Chest (12/11/2024 1:40 PM EDT) Anatomical Region Laterality Modality Radiographic Trudi ging 12/11/2024 1:40 PM EDT Narrative 12/11/2024 2:24 PM EDT [address] [address] XRay Report Signed Patient: Jose Armando Luther MR#: [id number] : 1980 Acct:[id number] Age/Sex: 44 / M ADM Date: 12/11/24 Loc: HO.HHCX Attending Dr: Betty Mckeon MD Ordering Physician: Betty Mckeon MD Date of Service: 12/11/24 Procedure(s): XR ribs LT min 3V w CXR1V Accession Number(s): [id number] cc: Betty Mckeon MD EXAMINATION: XR RIBS [...] 12/11/24 1421 DD/ 1340 TD/TT: 12/11/24 1340 Delinquent Tax Collector: Procedure Note Donotuseinterpreter, Image - 12/11/[address] [address] XRay Report Signed Patient: Jose Armando Luther#: [id number] : 1980Acct:[id number] Age/Sex: 44 / MADM Date: 12/11/24 Loc: .HHX Attending Dr: Betty Mckeon MD Ordering Physician: Betty Mckeon MD Date of Service: 12/11/24 Procedure(s): XR ribs LT min 3V w CXR1V Accession Number(s): [id number] cc: Betty Mckeon MD EXAMINATION: XR RIBS [...] 12/11/24 1421 DD/ 1340 TD/TT: 12/11/24 1340 Delinquent Tax Collector: Betty Mckeon MD IMG XR PROCEDURES Edited R esult - Final from Last [address] [facility] STANDARD DENTAL-[facility] MEDICAID STAND ADULT Care Teams Vending Machine Collector Relationship Specialty Start Date End Date Susannah Ryan MD [address] [place] [phone] PCP - General Family Medicine 12/28/24 Horacio Brooks MD [facility] Hematology/Oncology 12/11/24
[2025-01-31] MEDS: iohexoL 350 MG/ML 100 ML INFUS..BTL 85 ML IV (06:36)
--- NOTE | 2025-01-31 07:37 | PC.NURSE ---
Tania PRECIADO at bedside explaining surgical procedure to patient. Per ILANA, hold off on NG tube for now
--- NOTE | 2025-01-31 08:04 | PM.HPGS ---
History of Present Illness History of Present Illness Date of Service: 01/31/25 <Tania Holliday PA-C - Last Filed: 01/31/25 08:19> 01/31/25 <Tiburcio Kelly MD - Last Filed: 01/31/25 10:21> Chief complaint: Sigmoid obstruction <Tania Holliday PA-C - Last Filed: 01/31/25 08:19> Narrative: Jose Armando Blackwood is a 44 year old male with PMH of rectal CA presenting with abdominal pain for 3 days. He reports he developed diffuse abdominal pain three days ago associated with obstipation. He has not passed much flatus or had a bowel movement in over 3 days and prior to this the stools were smaller in caliber. The pain was associated with nausea and vomiting. He reports being diagnosed with colon CA December 2023 in [place] on colonoscopy. He was having blood in his stools at that time. Apparently, they attempted to do a colon resection for the cancer at that time but during the procedure they found that the cancer was rectal and procedure was aborted. He reports he had been undergoing chemotherapy in [place] and then continued when he moved to the 4 months ago. He sees Dr. Brooks for oncology at [facility]. He denies prior PMH and denies any daily medications. Last chemo was Tuesday. He reports colon CA in father who two years ago from it. Work up in the ED included CBC, BMP, LFTs which was significant for leukocytosis of 13.0, mild hypokalemia. CT scan abd pelvis was performed, official read pending, but shows dilated colon loops with narrowing in the sigmoid, possible cecal pneumatosis. CXR also shows small patchy airspace disease left lower lobe. <Tania Holliday PA-C - Last Filed: 01/31/25 08:19> Review of Systems Constitutional: Constitutional: Denies chills and Denies fever(s) <JEFF Navarro Last Filed: 01/31/25 08:19> ENT: Denies dizziness <Tania Holliday PA-C - Last Filed: 01/31/25 08:19> Cardiovascular: Cardiovascular: Denies chest pain and Denies dyspnea <Tania Holliday PA-C - Last Filed: 01/31/25 08:19> Respiratory: Respiratory: Denies dyspnea <JEFF Navarro Last Filed: 01/31/25 08:19> Gastrointestinal: Gastrointestinal: Reports as per HPI <JEFF Navarro Last Filed: 01/31/25 08:19> Integumentary/Breasts: Skin/Breast: Denies rash and Denies jaundice <JEFF Navarro Last Filed: 01/31/25 08:19> Neurologic: Denies dizziness <JEFF Navarro Last Filed: 01/31/25 08:19> PMFSH Past Medical History Medical History: Medical History Colorectal cancer <JEFF Navarro Last Filed: 01/31/25 08:19> Family History Pertinent family history: colon cancer in father <JEFF Navarro Last Filed: 01/31/25 08:19> Social History Social History: Social History (System 12/13/24 @ 08:40 by Ashley Acuna) Alcohol intake: current Alcohol intake frequency: holidays/special occasions only Smoked in Last 30 Days: Yes Use of substances other than those prescribed or required for medical reasons: No Advance Directives: No Advance Directives Information Provided: Yes <JEFF Navarro Last Filed: 01/31/25 08:19> Meds Allergies/Adverse reactions: Allergies Allergy/AdvReac Type Severity Reaction Status Date / Time morphine Allergy Anaphylaxis Verified 01/31/25 05:06 <JEFF Navarro Last Filed: 01/31/25 08:19> Active Medications: Current Medications Potassium Chloride (Potassium Chloride/H20) 10 meq in 100 mls @ 100 mls/hr IV Q1H KEYANNA Stop: 01/31/25 08:14 Last Admin: 01/31/25 07:32 Dose: 100 mls/hr <JEFF Navarro Last Filed: 01/31/25 08:19> Home medications: Home Medications ?Medication ?Instructions ?Recorded ?Confirmed ?Last Taken ?Type No Known Home Meds 01/31/25 01/31/25 Unknown History <Tania Holliday PA-C Saeed Last Filed: 01/31/25 08:19> Physical Exam Vital Signs: Vital Signs: Last Vital Signs Temp 98.4 F 01/31/25 07:16 Pulse 85 01/31/25 07:16 Resp 16 01/31/25 07:16 BP 120/77 01/31/25 07:16 Pulse Ox 93 01/31/25 07:16 O2 Del Method Room Air 01/31/25 07:16 BMI result Body Mass Index 24.7 <Tania Holliday PA-C Viajala Last Filed: 01/31/25 08:19> Const: Other: tearful <Tania Holliday PA-C Viajala Last Filed: 01/31/25 08:19> General: comfortable, no acute distress and alert <Tania Holliday PA-C Viajala Last Filed: 01/31/25 08:19> Nutritional Appearance: well nourished <Tania Holliday PA-C Viajala Last Filed: 01/31/25 08:19> Orientation/consciousness: patient oriented x3 <Tania Holliday PA-C Viajala Last Filed: 01/31/25 08:19> Resp: Effort & Inspection: normal respiratory effort, able to speak in complete sentences and not tachypneic <Tania Holliday PA-C Saeed Last Filed: 01/31/25 08:19> Cardio: Rate: regular rate <Tania Holliday PA-C Viajala Last Filed: 01/31/25 08:19> GI: Other: abdomen distended and typmanitic but soft mild diffuse tenderness very well healed small scars lower abdomen <Tania Holliday PA-C Viajala Last Filed: 01/31/25 08:19> Inspection: Yes scar <Tania Holliday PA-C Viajala Last Filed: 01/31/25 08:19> Palpation (GI): no guarding and not rigid <Tania Holliday PA-C Viajala Last Filed: 01/31/25 08:19> Skin: General skin exam: no rashes or lesions noted and no jaundice <Tania Holliday PA-C Viajala Last Filed: 01/31/25 08:19> Neuro: General: patient oriented x3 and moves all extremities <JEFF Navarro Last Filed: 01/31/25 08:19> Results Results Labs: Short CBC 01/31/25 Range/Units 05:20 WBC 13.0 H (4.8-10.8) X10*3/uL Hgb 13.6 L (14.0-18.0) g/dl Hct 39.5 L (42.0-52.0) % Plt Count 278 (160-400) X10*3/uL BMP 01/31/25 05:20 Sodium 138 Potassium 3.1 L Chloride 95 L Carbon Dioxide 26 BUN 17 H Creatinine 1.15 Calcium 9.6 D Liver Function 01/31/25 Range/Units 05:20 Total Bilirubin 1.1 H (0.0-1.0) mg/dL AST 24 (5-37) U/L ALT 8 (0-40) U/L Alkaline Phosphatase 113 (39-117) U/L Albumin 4.6 (3.5-5.0) g/dL <JEFF Navarro Last Filed: 01/31/25 08:19> Abdomen CT scan report/results: image reviewed <JEFF Navarro Last Filed: 01/31/25 08:19> Additional studies: labs reviewed <Tania Holliday PA-C Last Filed: 01/31/25 08:19> Assessment and Plan (1) Colon obstruction: Status: Acute <JEFF Navarro Last Filed: 01/31/25 08:19> 44-year-old male with abdominal pain x3 days along with some distention and vomiting. I was able to discuss his case with his oncologist in [facility] He is undergoing neoadjuvant chemotherapy for rectal cancer FOLFOX, no bevacizumab has been given Last chemotherapy was last week He apparently had a locally advanced adenocarcinoma in the rectosigmoid; attempted resection was aborted in [place] last year He therefore his being followed by Oncology in [facility] MRI done last January 29 shows circumferential wall thickening with no luminal narrowing in the rectum consistent with a stricture Clinical picture therefore consistent with distal obstruction secondary to rectal cancer Plan today is to she had with a hand assisted laparoscopic examination with likely colostomy to divert him due to his obstruction He understands the technique of the planned procedure. He was aware of the risks, benefits, alternatives. His was follow up with the discussion. We will examine the cecum as well as there is question of pneumatosis although the radiologist states that this appears to be unlikely I have examined and seen the patient independently I have discussed the plan as well with the oncology service in [facility] <Tiburcio Kelly MD - Last Filed: 01/31/25 10:21> 44 year old male with PMH of rectal CA diagnosed in [place] undergoing chemotherapy who presented with diffuse abdominal pain and obstipation with CT showing dilated colonic loops with narrowing in the sigmoid consistent with colonic obstruction. This is likely due to the cancer itself. It was therefore recommended to proceed with hand assisted laparoscopic diverting loop transverse colostomy in view of the obstruction. However there is possibility of pneumatosis of cecum, which will be assessed intraoperatively and if there is concern, ileostomy will be necessary. This was discussed with patient and . Will obtain records from Dr. Brooks. He has been added onto the OR schedule for today. Cont NPO, IVF, IV zosyn for pneumonia. <Tania Holliday PA-C - Last Filed: 01/31/25 08:19> Quality Stroke Does the patient have a stroke diagnosis?: No <Tania Holliday PA-C - Last Filed: 01/31/25 08:19> VTE Prior VTE?: No <Tania Holliday PA-C - Last Filed: 01/31/25 08:19> VTE Risk Level:: Surgical - moderate <Tania Holliday PA-C - Last Filed: 01/31/25 08:19> VTE Device Contraindication: N/A - Device Ordered <Tania Holliday PA-C - Last Filed: 01/31/25 08:19> VTE Drug Contraindication: N/A - Med Ordered <Tania Holliday PA-C - Last Filed: 01/31/25 08:19> Procedures Date of Service Date of Service: 01/31/25 <Tania Holliday PA-C - Last Filed: 01/31/25 08:19> 01/31/25 <Tiburcio Kelly MD - Last Filed: 01/31/25 10:21>
--- NOTE | 2025-01-31 08:20 | HO.ANESPROP2 ---
Documented by User: Dahlia Treviño NP 01/31/25 09:09 HPI - Anesthesia Eval Consult details Narrative: 44 yr old Bhutanese-speaking male for Hand Assist laparoscopic Loop Colostomy +URI symptoms for about 1 week, no fevers. Denies CP, SOB Reports having bowel surgery in [place] about 1 year ago for cancer Hypokalemia: K+ 3.1 _--> 2 bags IV potassium Colorectal rectal: currently doing chemo with Dr. Brooks, last dose last week (01/23/25); reports allergic reaction with last chemo dose, became itchy, rash, facial numbness, treated with benadryl, pepcid, hydrocortisone, loratadine. Chemo regimen every other week: Dexamethasone Fluorouracil Leucovorin Oxaliplatin Palonosetron Chest xray with probable pneumonia: 01/31/25 chest xray showing New small patchy airspace disease left lower lobe probably pneumonic. Mandible fx September 2024 PMFSH Active Problems Active Problems: All Active Problems Colon obstruction (Acute) Pneumonia (Acute) Acute hypokalemia (Acute) Bowel obstruction (Acute) Past Medical History Medical History Colorectal cancer Social History Social History Household Members: Other Household Members Other:: Aunt Housing: Apartment Do you presently have visiting nurse or other home services: No Alcohol intake: current Alcohol intake frequency: holidays/special occasions only Patient Tobacco Use Status: Current everyday Tobacco user Tobacco use type: Cigarette Cigarettes Per Day: 2 Smoked in Last 30 Days: Yes Use of substances other than those prescribed or required for medical reasons: Yes Substance Use Type Other:: pt sts uses everything but not today Have you been hit, kicked, punched, or otherwise hurt by someone within the past year? If so, by whom?: No Do you feel safe in your current relationship?: No Current Relationship Is there a partner from a previous relationship who is making you feel unsafe now?: No Are you made to feel afraid or neglected: No Cultural Healthcare Practices: Jehovah'S Witness Advance Directives: No Advance Directives Information Provided: Yes Do you have a plan to hurt others: No Plan Recently lost weight without trying: No Nutrition Risks: Poor intake 0-25% >4 days Meds Allergies Allergy/AdvReac Type Severity Reaction Status Date / Time morphine Allergy Anaphylaxis Verified 01/31/25 05:06 Active Medications: Current Medications Calcium Carbonate (Calcium Carbonate 750 Mg Tab.Chew) 750 mg PO Q4H PRN PRN Reason: Heartburn Lactated Ringer's (Lr) 1,000 mls @ 100 mls/hr IVCONT .Q10H KEYANNA Piperacillin Sod/Tazobactam (Sod 4.5 gm/ Sodium Chloride) 100 mls @ 200 mls/hr IV Q6H KEYANNA Acetaminophen (Ofirmev) 1,000 mg in 100 mls @ 400 mls/hr IV Q6H KEYANNA Melatonin (Melatonin 3 Mg Tablet) 6 mg PO BEDTIME PRN PRN Reason: Insomnia Ondansetron HCl (Ondansetron Hcl 4 Mg/2 Ml Vial) 4 mg IVPUSH Q8H PRN PRN Reason: Nausea and Vomiting Sodium Chloride (0.9 % Sodium Chloride Flush 3 Ml Syringe) 3 ml IVFLUSH QSHIFT [facility] Home Medications ?Medication ?Instructions ?Recorded ?Confirmed ?Last Taken ?Type No Known Home Meds 01/31/25 01/31/25 Unknown History Exam Height,Weight and Vital Signs: Height 5 ft 11 in Weight 80.5 kg Last Vital Signs Temp 98.4 F 01/31/25 07:16 Pulse 85 01/31/25 07:16 Resp 16 01/31/25 07:16 BP 120/77 01/31/25 07:16 Pulse Ox 93 01/31/25 07:16 O2 Del Method Room Air 01/31/25 07:16 Pertinent Lab Results Pertinent Lab Results: Laboratory Tests 01/31/25 05:20 WBC 13.0 H RBC 4.69 Hgb 13.6 L Hct 39.5 L MCV 84.2 MCH 29.0 MCHC 34.4 RDW 17.1 H Plt Count 278 MPV 9.2 L Immature Gran % (Auto) 0.6 H Neut % (Auto) 76.3 H Lymph % (Auto) 16.3 L Atlantic % (Auto) 6.1 Eos % (Auto) 0.3 Baso % (Auto) 0.4 Lymph # (Auto) 2.1 Atlantic # (Auto) 0.8 Eos # (Auto) 0.0 Baso # (Auto) 0.1 Abs Immat Gran (auto) 0.08 H Absolute Neuts (auto) 10.0 H Absolute Nucleated RBC 0.040 H Nucleated RBC % (auto) 0.3 H Sodium 138 Potassium 3.1 L Chloride 95 L Carbon Dioxide 26 Anion Gap 20 BUN 17 H Creatinine 1.15 Estim Creat Clear Calc 87.3 Estimated GFR > 60 Random Glucose 142 H Calcium 9.6 D Total Bilirubin 1.1 H AST 24 ALT 8 Alkaline Phosphatase 113 Total Protein 8.3 H Albumin 4.6 Lipase 16 COVID-19 (TRICIA) Negative COVID-19 Clin Com See Note Influenza Type A (MARCIA) Negative Influenza Type B (MARCIA) Negative Influenza A & B Note See Note Airway Mallampati Class: II TM Dist: >3cm Neck ROM: Full Loose/Missing/Broken Teeth: Yes and Upper (B, M) Heart: RRR Lungs: bilateral rhonchi at bases Documented by User: Clarence Cerna MD 01/31/25 16:05 [facility] Past Medical History Medical History Colorectal cancer Functional capacity: independent ambulation Family History Family history of problems with anesthesia: No Surgical History History of Problems with Anesthesia: No Social History Social History Household Members: Other Household Members Other:: Aunt Housing: Apartment Do you presently have visiting nurse or other home services: No Alcohol intake: current Alcohol intake frequency: holidays/special occasions only Patient Tobacco Use Status: Current everyday Tobacco user Tobacco use type: Cigarette Cigarettes Per Day: 2 Smoked in Last 30 Days: Yes Use of substances other than those prescribed or required for medical reasons: Yes Substance Use Type Other:: pt sts uses everything but not today Have you been hit, kicked, punched, or otherwise hurt by someone within the past year? If so, by whom?: No Do you feel safe in your current relationship?: No Current Relationship Is there a partner from a previous relationship who is making you feel unsafe now?: No Are you made to feel afraid or neglected: No Cultural Healthcare Practices: Jehovah'S Witness Advance Directives: No Advance Directives Information Provided: Yes Do you have a plan to hurt others: No Plan Recently lost weight without trying: No Nutrition Risks: Poor intake 0-25% >4 days Meds Allergies Allergy/AdvReac Type Severity Reaction Status Date / Time morphine Allergy Anaphylaxis Verified 01/31/25 05:06 Home Medications ?Medication ?Instructions ?Recorded ?Confirmed ?Last Taken ?Type No Known Home Meds 01/31/25 01/31/25 Unknown History Assessment and Plan Assessment Anesthesia Assessment: Anesthesia Plan Discussed and Smoking Cess. Discussed Final Anesthetic Review Family History of Problems with Anesthesia: No History of Problems with Anesthesia: No NPO: Yes ASA Class: II Final Preanesthetic Review: No Changes in Pt Med Stat, Meds/Allgs Chart Reviewed and Anes Risks/Benef Reviewed Patient Risk: Intermediate Procedure Risk: Intermediate Anesthetic Plan Anesthetic Plan: GA and Agree w/ Assess. and Plan Disposition: Standard PACU
--- NOTE | 2025-01-31 08:25 | PHA.MEDREC ---
Addendum entered by Dallas Christy marleen 01/31/25 08:35: MED REC REVIEWED BY [facility] Original Note: Pharmacy Consult ? Medication Reconciliation Pharmacy has completed the medication reconciliation. Spoke to patient through art education professor service to confirm med list. Patient states he is not taking any medications. He was prescribed Senns -S 8.6 mg and Magnesium Oxide 400 mg. He is no longer taking
[2025-01-31] MEDS: Lactated Ringers 1,000 ML 100 ML IVCONT (09:11)
--- NOTE | 2025-01-31 10:05 | HO.OSTOMY ---
Ostomy Site Marking 44 year old male admitted to [facility] on 01/31/25 - see H&p for detailed history. Ostomy consult placed for pre-op site marking in ED. Patient seen in the ED for brief pre-operative ostomy teaching and stoma site selection/marking. ?Patient is Polish Speaking Cigar Head Pegger present throughout consultation. The patient was instructed in very basic GI anatomy and stoma creation, and teaching to be available after surgery should a stoma be created. ?Throughout the visit the patient kept his eyes closed and did not have questions. He was assured teaching and education would be provided after surgery should he have an ostomy created - he reported understanding. ?Instruction was given on the purpose of pre-operative stoma site selection and marking: ?the importance of identifying a location within sight, avoiding creases on a relatively flat area of the abdomen, and siting within the large muscle of the abdomen for support. He agreed with the procedure. The patient's abdomen was visualized and palpated in the sitting, standing, bending, and lying positions. ?The margins of the rectus abdominis muscles were identified, and sites were marked in the RUQ and LUQ within the margins. ?The patients pant location was taken into consideration when marking. ?He has a horizontal crease at the umbilicus and he was marked accordingly - I also took into consideration a midline incision and marked accordingly for surgeon visibility in the OR. The lower quadrant was not a viable option after full assessment as his abdomen hangs over when sitting and if lower abdomen were to be used patient would likely not be able to see the stoma resulting in difficulty maintaining a pouch and would be prone to leaking. The sites were cleansed with alcohol prep pads before marking, marked with sterile surgical marker, and covered with tegaderms. ? Inpatient ostomy nurse will follow along for need for teaching. Thank you.
--- NOTE | 2025-01-31 16:11 | MHC.CM.PN ---
CM ATTEMPTED TO MEET WITH PT PT OFF UNIT CM TO RETURN
--- NOTE | 2025-01-31 18:14 | P.OP_ITS ---
Operative Note Operative Note Date of Service: 01/31/25 Narrative: Preop diagnosis: Obstructing rectal cancer Postop diagnosis: The same Procedure: Hand assisted laparoscopic loop sigmoid colostomy Surgeon: Tiburcio Kelly MD assistant health educator: ILANA Holliday The patient is a 44-year-old male with a diagnosis of rectal cancer, locally advanced, undergoing neoadjuvant chemotherapy in [facility], who was admitted this morning because of abdominal pain, vomiting with distention. He is CAT scan showed diffuse dilatation of the colon all the way to the rectosigmoid consistent with an obstructing rectal tumor. I discussed this with his oncologist as well in [facility] He understood the technique of hand assisted laparoscopic loop sigmoid colostomy. We had also planned on also planned on examining the cecum in view of question of pneumatosis and ischemia. The patient is brought to the operating room and placed in modified lithotomy position under general anesthesia via endotracheal tube. Was prepped and draped in the usual sterile fashion. A surgical time-out was done. The patient was receiving scheduled Zosyn. A TAP block was done by the anesthesiologist earlier. I made a short low midline incision with a blade 15. This carried down through the full-thickness of the skin subcutaneous fat to the fascia. The fascia was incised. The peritoneum was entered. The Kevon wound retractor and the GelPort was positioned. We insufflated using a port through the GelPort to a pressure of 15 mm Hg. With laparoscopic visualization through this same port using a 30 degree 10 mm scope, I proceeded to insert a 5/12 mm port in the epigastric area. We removed the drain port we. We moved the laparoscope through this new epigastric port. The patient is placed in a steep head-down position. With laparoscopic visualization I inserted a 5 mm port in the right lower quadrant through a small stab incision. I examined the cecum carefully. This was erythematous but did not appear ischemic at all. The small intestines and colon was actually he had eryt hematous in view of the distention. I palpated for the rectosigmoid. There was note of a fixed tumor deep in the pelvis. We therefore did not attempt any resection because of this I then proceeded to tilt the patient to the right. I visualize the line of Toldt and dissected the peritoneal attachments along the left colon and sigmoid using the LigaSure to allow more mobilization. It then appeared that we had enough to bring out the stoma We therefore desufflated. I passed a [place] drain through a small mesenteric defect in the loop of sigmoid. I excised the discoid piece of skin in the left lower quadrant that he had been previously marked using a blade 10. I used electrocautery to dissect through the subcutaneous fat all the way to the anterior sheath with a muscle-splitting of the rectus. We had to control bleeding from the this with a [id number] buried 3-0 stitch. This has likely from divided the epigastric vessel. We then pulled up the loop of sigmoid using the Asaf drain. I replaced the [place] drain with a stoma bridge above the skin level. We then proceeded to inspect the small bowel loops as well as the cecum again and this all did not have any injuries nor any obvious ischemia I then proceeded to close the fascia with a running Maxon 1 stitch. Laparoscopic examination of the fascial closure was done and there were no bowel loops caught by the sutures. I then removed the ports after desufflation. Skin closure was achieved with skin adolph. The epigastric port site was infiltrated with Marcaine 0.5% for postop analgesia We then matured the stoma. I made a transverse incision anterior wall of the loop of sigmoid using electrocautery. I secured the edges of the bowel to the subdermal layer circumferentially with Polysorb 3-0 simple sutures through the full-thickness of the bowel itself I probed both efferent and afferent limbs with a finger and these were patent past the fascial level Immediately, gas had been coming out through the stoma. Dressings were applied. The stoma appliance was positioned The procedure was completed The patient tolerated the procedure well. There were no immediate complications. Initial and final counts of sponges and instruments were correct. Estimated blood loss about 50 cc the patient is extubated without difficulty and transferred to the recovery room with stable vital signs.
--- NOTE | 2025-01-31 18:57 | PM.EVENT ---
Event Note Date of Service: 01/31/25 Event Note: Seen postop Status post loop sigmoid colostomy Appears to have adequate pain control currently Stable vital signs Passing flatus from the stoma Pain management Family updated Time Spent With Patient Time: Total time managing care of this patient today ____ minutes.
[2025-02-01] VITALS (7 sets, daily range): BP systolic 107–118; BP diastolic 61–76; PULSE 71–77; RESP 16–20; TEMP 36–37.2; O2SAT 92–93
[2025-02-01] MEDS: Lactated Ringers 1,000 ML 100 ML IVCONT (03:49)
[2025-02-01 06:26] LABS: MANUAL DIFF FLAG NO
[2025-02-01 06:51] LABS: Anion Gap 14 (12-20); Blood Urea Nitrogen 14 mg/dL (9-16); Calcium 8.6 mg/dL (8.4-10.2); Carbon Dioxide 29 mmol/L (22-29); Chloride 97 mmol/L (96-108); Creatinine Clr Calc Pharmacy 98.4; Estimated Glomerular Filt Rate > 60; Potassium 3.9 mmol/L (3.3-5.1); Sodium 136 mmol/L (135-145)
[2025-02-01 06:54] LABS: Hematocrit 34.5 % (42.0-52.0); Hemoglobin 11.4 g/dl (14.0-18.0); Imm Gran Abs Auto 0.02 X10*3/uL (0.00-0.03); Imm Gran Pct Auto 0.3 % (0.0-0.4); Lymphocytes Absolute Auto 1.1 X10*3/uL (1.2-4.9); Mean Corpuscular HGB Conc 33.0 g/dl (31.0-36.0); Mean Corpuscular Hemoglobin 28.6 pg (27.0-33.0); Mean Corpuscular Volume 86.5 fL (80.0-98.0); NRBC Abs Auto 0.020 X10*3/uL (0.0-0.012); NRBC Pct Auto 0.3 /100WBC (0.0-0.2); Platelet Count 226 X10*3/uL (160-400); Red Blood Count 3.99 X10*6/uL (4.60-5.80); White Blood Count 6.7 X10*3/uL (4.8-10.8)
--- NOTE | 2025-02-01 08:02 | PM.PNGS ---
Subjective Subjective Date of Service: 02/01/25 <Tania Holliday PA-C - Last Filed: 02/01/25 08:06> 02/01/25 <Tiburcio Kelly MD - Last Filed: 02/01/25 09:24> Interval history: Complaining of a lot of pain this morning at incision site. Has been OOB to bathroom. Denies nausea, vomiting. Tolerating water. <Tania Holliday PA-C - Last Filed: 02/01/25 08:06> Physical Exam Vital Signs: Vital Signs: Last Vital Signs Temp 97.9 F 02/01/25 07:58 Pulse 74 02/01/25 07:58 Resp 18 02/01/25 07:58 BP 117/76 02/01/25 07:58 Pulse Ox 92 02/01/25 07:58 O2 Del Method Room Air 02/01/25 07:58 O2 Flow Rate 2 01/31/25 19:31 BMI result Body Mass Index 24.2 <Tania Holliday PA-C - Last Filed: 02/01/25 08:06> Const: General: comfortable, no acute distress and alert <Tania Holliday PA-C - Last Filed: 02/01/25 08:06> Orientation/consciousness: patient oriented x3 <JEFF Navarro Last Filed: 02/01/25 08:06> Resp: Effort & Inspection: normal respiratory effort <JEFF Navarro Last Filed: 02/01/25 08:06> GI: Other: dressings clean and intact ostomy edematous appearing, bridge in place, large amount of soft stool in appliance distended but significantly improved <Tania Holliday PA-C - Last Filed: 02/01/25 08:06> Palpation (GI): Soft to palpation and Tenderness to palpation present (GI) (incisional) <JEFF Navarro Last Filed: 02/01/25 08:06> Percussion: Yes tympanic to percussion <JEFF Navarro Last Filed: 02/01/25 08:06> Skin: General skin exam: no rashes or lesions noted <Tania Holliday PA-C - Last Filed: 02/01/25 08:06> Neuro: General: patient oriented x3 and moves all extremities <Tania Holliday PA-C - Last Filed: 02/01/25 08:06> Objective Data Active Medications Calcium Carbonate (Calcium Carbonate 750 Mg Tab.Chew) 750 mg PO Q4H PRN PRN Reason: Heartburn Hydromorphone HCl (Hydromorphone Hcl 0.5 Mg/0.5 Ml Syringe) 0.5 mg IVPUSH Q3H PRN; Protocol PRN Reason: Pain, Severe (Pain Scale 7-10) Last Admin: 02/01/25 03:13 Dose: 0.5 mg Documented By: DANNI Lactated Ringer's (Lr) 1,000 mls @ 100 mls/hr IVCONT .Q10H [facility] Last Admin: 02/01/25 03:49 Dose: 100 mls/hr Documented By: DANNI Acetaminophen (Ofirmev) 1,000 mg in 100 mls @ 400 mls/hr IV Q6H [facility] Last Infusion: 02/01/25 01:43 Dose: Infused Documented By: DANNI Piperacillin Sod/Tazobactam (Sod 4.5 gm/ Sodium Chloride) 100 mls @ 200 mls/hr IV Q6H [facility] Last Infusion: 02/01/25 03:49 Dose: Infused Documented By: DANNI Melatonin (Melatonin 3 Mg Tablet) 6 mg PO BEDTIME PRN PRN Reason: Insomnia Naloxone HCl (Naloxone Hcl 0.4 Mg/Ml Vial) 0.04 mg IVPUSH Q5M PRN PRN Reason: Excessive sedation or RR < 8 Ondansetron HCl (Ondansetron Hcl 4 Mg/2 Ml Vial) 4 mg IVPUSH Q8H PRN PRN Reason: Nausea and Vomiting Sodium Chloride (0.9 % Sodium Chloride Flush 3 Ml Syringe) [facility] Last Admin: 02/01/25 00:09 Dose: Not Given Documented By: DANNI Non-Admin Reason: IV Running <JEFF Navarro Last Filed: 02/01/25 08:06> Labs CBC & Chem 7: 02/01/25 05:42 02/01/25 05:42 <Tania Holliday PA-C - Last Filed: 02/01/25 08:06> Labs: Laboratory Results - last 24 hr 01/31/25 02/01/25 08:13 05:42 MCV 86.5 MCH 28.6 MCHC 33.0 RDW 16.7 H Plt Count 226 MPV 9.2 L Immature Gran % (Auto) 0.3 Neut % (Auto) 73.6 H Lymph % (Auto) 16.8 L [place] % (Auto) 8.9 Eos % (Auto) 0.1 Baso % (Auto) 0.3 Lymph # (Auto) 1.1 L [place] # (Auto) 0.6 Eos # (Auto) 0.0 Baso # (Auto) 0.0 Abs Immat Gran (auto) 0.02 Absolute Neuts (auto) 5.0 Absolute Nucleated RBC 0.020 H Nucleated RBC % (auto) 0.3 H Anion Gap 14 Estim Creat Clear Calc 98.4 Estimated GFR > 60 Random Glucose 98 Lactic Acid 1.4 Calcium 8.6 D Blood Type A Positive Antibody Screen NEGATIVE <Tania Holliday PA-C - Last Filed: 02/01/25 08:06> Procedures Date of Service Date of Service: 02/01/25 <Tania Holliday PA-C - Last Filed: 02/01/25 08:06> 02/01/25 <Tiburcio Kelly MD - Last Filed: 02/01/25 09:24> Progress Note: A&P Assessment and plan (1) Colon obstruction: Status: Acute <Tania Holliday PA-C - Last Filed: 02/01/25 08:06> Assessment and Plan: Describes pain on incisions Otherwise passing good amounts of stool and flatus via the stoma Abdomen much less distended He looks well clinically Stoma functioning well Pain management Ambulate Incentive spirometry Advance diet Doing well overall Seen and examined independently <Tiburcio Kelly MD - Last Filed: 02/01/25 09:24> (2) S/P colostomy: Status: Acute <Tania Holliday PA-C - Last Filed: 02/01/25 08:06> Assessment and Plan: POD #1 s/p Hand assisted laparoscopic loop sigmoid colostomy for obstructing rectal CA. Doing well post op but having difficulty with pain control. VSS. AM labs reviewed- WBC normalized, Cr improved. Abd less distended, soft with appropriate post op tenderness ostomy viable appearing with stool output. Keep bridge in place. Will advance to solid diet. Ketorolac ATC added for pain control. Encouraged OOB/ambulation and IS. Cont IV zosyn for PNA present on admission. Ostomy education. Patient comfortable with plan. <JEFF Navarro Last Filed: 02/01/25 08:06> Time Spent With Patient Time: Total time managing care of this patient today ____ minutes. <Tania Holliday PA-C - Last Filed: 02/01/25 08:06> Quality Stroke Does the patient have a stroke diagnosis?: No <JEFF Navarro Last Filed: 02/01/25 08:06> VTE Prior VTE?: No <Tania Holliday PA-C - Last Filed: 02/01/25 08:06> VTE Risk Level:: Surgical - moderate <JEFF Navarro Last Filed: 02/01/25 08:06> VTE Device Contraindication: N/A - Device Ordered <JEFF Navarro Last Filed: 02/01/25 08:06> VTE Drug Contraindication: N/A - Med Ordered <JEFF Navarro Last Filed: 02/01/25 08:06>
--- NOTE | 2025-02-01 08:46 | HO.POSTANES ---
Post Anesthesia Evaluation Post Anesthesia Evaluation Date of Service: 02/01/25 Vital Signs: Vital Signs Temp Pulse Resp BP Pulse Ox O2 Del Method 02/01/25 07:58 97.9 F 74 18 117/76 92 Room Air 02/01/25 03:02 96.8 F 75 16 110/67 93 Room Air 01/31/25 23:49 96.8 F 80 16 133/82 93 Room Air Anesthesia: Nerve Block and General Endotracheal-GETA Mental Status: Awake Pain Control: Satisfactory Nausea/Vomiting: None Hydration: Adequate Anesthesia-Related Issues: No Anes. Related Issues
--- NOTE | 2025-02-01 12:00 | MHC.CM.PN ---
CM attempted to see patient this morning. He stated that he was very tired and needed to sleep. CM will return this afternoon.
--- NOTE | 2025-02-01 12:34 | HO.OSTOMY ---
Addendum entered by Quin Acuna 02/01/25 12:45: of note, patient reported small amount of blood from his rectum yesterday. RN and surgical PA made aware, explained likely expected considering s/p bowel surgery, but to let RN/provider know if it continues or increases, patient in agreement. Original Note: Ostomy Consult: Initial Teaching 44yr old male [place] [facility] [place] see H&P for detailed history and admission. Consult for new ostomy teaching. 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 ?Upon entry into patient's room, he is lying in his bed, he is alert and oriented x 3, he currently has no complaints. Patient is primarily [place] speaking and beverage inspection machine tender was used. ?Introductions were completed, he is agreeable to continuing with teaching. ? We discussed his pain control at the current moment, he reports he has been up and ambulating some. ?We began by discussing general knowledge about the Colostomy and questions he had. ?We discussed opening and closing the ostomy pouch. He was able to independently provide a return demonstration on an empty pouch. ?He reports that staff has emptied his pouch up to 6 times over night, Staff reports large volumes of light brown liquid stool. We discussed the importance of emptying pouch when 1/3 to 1/2 full, how to empty pouch, and lining water with toilet paper to prevent splash back. With an empty Coloplast pouch he performed a demonstration. We emptied his pouch at bedside today. Reviewed written education with patient and left at bedside for further review. ?He did watch the education videos supplied by [facility]. Upon return, patient had no further questions. Discussed that pouch gets changed every 3/5 days or sooner if leaking. Permission was granted for pouch assessment and no leak was noted. Stoma is dark red swollen and appears viable through pouch, protruding above the level of the skin with bridge in place. He reported having no further questions at this time. ?Patient was made aware that ostomy nurse will return to bedside early next week for ongoing education - however to note patient seems to have a good understanding of care and material at this time. Patient reports that his father had an ostomy that he hepled care for. ?He will benefit from VNA services at time of discharge. ?All questions and concerns addressed at this time. Next teaching session goals: Demonstrate open and close independently Empty pouch
--- NOTE | 2025-02-01 14:26 | PM.EVENT ---
Event Note Date of Service: 02/01/25 Event Note: Seen on afternoon rounds Appears to have much better pain control Tolerating diet Stoma with good function Abdomen is soft Looks well overall Stable vital signs Pain management Encouraged ambulation Family at bedside Stoma care Time Spent With Patient Time: Total time managing care of this patient today ____ minutes.
--- NOTE | 2025-02-01 15:05 | MHC.CM.PN ---
S/P BOWEL RESECTION WITH OSTOMY CREATION LIVES WITH HIS AUNT HE IS INDEPENDENT WITH ALL FUNCTIONAL MOBILITY HE IS OPEN TO HOME SERVICES IF NEEDED. A REFERRAL HAS BEEN SENT TO [facility] AT PATIENT REQUEST. hE WILL ARRANGE FOR A RIDE HOME AT DISCHARGE.
[2025-02-01] MEDS: 0.9 % Sodium Chloride Flush 3 ML SYRINGE IVFLUSH ×2 (15:32→20:09)
[2025-02-02] VITALS (10 sets, daily range): BP systolic 111–117; BP diastolic 62–71; PULSE 67–82; RESP 16–20; TEMP 36.7–37.7; O2SAT 92–96
--- NOTE | 2025-02-02 03:36 | PC.NURSE ---
0300. Pt reports pain level is now down to 6-8 verbal pain scale range with the administration of scheduled Toradol, Tylenol and PRN Dilaudid 2mg PO. Pt declines Dilaudid IV as reports he can tolerate the pain at this point as it was a 15 earlier in the day . Patient reported he was able to empty his colostomy on his own x1 overnight and is putting out moderate amounts of brown liquid stool and flatus. Patient observed taking naps through out the night, RR even and nonlabored. Pt with moist productive cough, utilizing splinting technique. VSS. Continuing with plan of care.
[2025-02-02] MEDS: 0.9 % Sodium Chloride Flush 3 ML SYRINGE IVFLUSH (08:09)
--- NOTE | 2025-02-02 08:37 | PM.PNGS ---
Subjective Subjective Date of Service: 02/02/25 Interval history: Reporting some incisional pain otherwise feels improved. Ostomy producing large amount of stool and gas. Physical Exam Vital Signs: Vital Signs: Last Vital Signs Temp 98.7 F 02/02/25 08:10 Pulse 75 02/02/25 08:10 Resp 16 02/02/25 08:10 BP 141/66 H 02/02/25 08:10 Pulse Ox 99 02/02/25 08:10 O2 Del Method Room Air 02/02/25 08:10 O2 Flow Rate 2 01/31/25 19:31 BMI result Body Mass Index 24.2 Const: General: no acute distress Nutritional Appearance: well nourished Orientation/consciousness: patient oriented x3 Limitations: no limitations Resp: Effort & Inspection: normal respiratory effort GI: Other: Midline incision is clean and intact, dressings changed, ostomy patent with loose stool and gas, no blood Skin: Other: Warm, dry, no rash Neuro: General: patient oriented x3 Extrem: General: Yes no pedal edema Objective Data Active Medications Calcium Carbonate (Calcium Carbonate 750 Mg Tab.Chew) 750 mg PO Q4H PRN PRN Reason: Heartburn Hydromorphone HCl (Hydromorphone Hcl 0.5 Mg/0.5 Ml Syringe) 0.5 mg IVPUSH Q3H PRN; Protocol PRN Reason: Pain, Severe (Pain Scale 7-10) Last Admin: 02/01/25 07:56 Dose: 0.5 mg Documented By: JOSSE Hydromorphone HCl (Hydromorphone Hcl 2 Mg Tablet) 2 mg PO Q4H PRN PRN Reason: Pain, Moderate(Pain Scale 4-6) Last Admin: 02/02/25 04:31 Dose: 2 mg Documented By: TRINA Acetaminophen (Ofirmev) 1,000 mg in 100 mls @ 400 mls/hr IV Q6H [facility] Last Infusion: 02/02/25 08:17 Dose: Infused Documented By: YEISON Piperacillin Sod/Tazobactam (Sod 4.5 gm/ Sodium Chloride) 100 mls @ 200 mls/hr IV Q6H [facility] Last Admin: 02/02/25 08:18 Dose: 200 mls/hr Documented By: YEISON Ketorolac Tromethamine (Ketorolac Tromethamine 15 Mg/Ml Vial) 15 mg IVPUSH Q6H [facility] Last Admin: 02/02/25 07:59 Dose: 15 mg Documented By: YEISON Melatonin (Melatonin 3 Mg Tablet) 6 mg PO BEDTIME PRN PRN Reason: Insomnia Naloxone HCl (Naloxone Hcl 0.4 Mg/Ml Vial) 0.04 mg IVPUSH Q5M PRN PRN Reason: Excessive sedation or RR < 8 Ondansetron HCl (Ondansetron Hcl 4 Mg/2 Ml Vial) 4 mg IVPUSH Q8H PRN PRN Reason: Nausea and Vomiting Sodium Chloride (0.9 % Sodium Chloride Flush 3 Ml Syringe) 3 ml IVFLUSH QSHIFT [facility] Last Admin: 02/02/25 08:09 Dose: 3 ml Documented By: YEISON Labs 02/01/25 05:42 02/01/25 05:42 Procedures Date of Service Date of Service: 02/02/25 Progress Note: A&P Assessment and plan (1) Bowel obstruction: Status: Acute (2) S/P colostomy: Status: Acute (3) Colon obstruction: Status: Acute Assessment and Plan: POD 2 following hand assisted diverting loop colostomy for obstructing rectal CA. Patient has some mild incisional pain but otherwise is stable. Ostomy is functioning well. Continue regular diet. Encouraged out of bed and ambulation, incentive spirometry. Time Spent With Patient Time: Total time managing care of this patient today ____ minutes. Quality Stroke Does the patient have a stroke diagnosis?: No VTE Prior VTE?: No VTE Risk Level:: Surgical - moderate VTE Device Contraindication: N/A - Device Ordered VTE Drug Contraindication: N/A - Med Ordered
[2025-02-03] VITALS (7 sets, daily range): BP systolic 115–126; BP diastolic 58–75; PULSE 64–80; RESP 16–20; TEMP 36.2–37; O2SAT 93–96
[2025-02-03] MEDS: 0.9 % Sodium Chloride Flush 3 ML SYRINGE IVFLUSH ×2 (08:11→21:26)
--- NOTE | 2025-02-03 09:33 | P.PNGS_ITS ---
Subjective Subjective Date of Service: 02/03/25 Interval history: Patient reports only mild incisional pain otherwise feels well. He was up and ambulating yesterday. He also emptied his colostomy yesterday without difficulty. Physical Exam 2 Vital Signs: Vital Signs: Last Vital Signs Temp 97.2 F 02/03/25 07:53 Pulse 66 02/03/25 07:53 Resp 18 02/03/25 07:53 BP 118/59 L 02/03/25 07:53 Pulse Ox 93 02/03/25 07:53 O2 Del Method Room Air 02/03/25 07:53 O2 Flow Rate 2 01/31/25 19:31 BMI result Body Mass Index 24.2 Const: General: no acute distress Nutritional Appearance: well nourished Orientation/consciousness: patient oriented x3 Limitations: no limitations Resp: Effort & Inspection: normal respiratory effort GI: Other: Midline incision is clean and intact, dressings changed, ostomy patent with loose stool and gas, no blood Skin: Other: Warm, dry, no rash Neuro: General: patient oriented x3 Extrem: General: Yes no pedal edema Objective Data Active Medications Calcium Carbonate (Calcium Carbonate 750 Mg Tab.Chew) 750 mg PO Q4H PRN PRN Reason: Heartburn Hydromorphone HCl (Hydromorphone Hcl 0.5 Mg/0.5 Ml Syringe) 0.5 mg IVPUSH Q3H PRN; Protocol PRN Reason: Pain, Severe (Pain Scale 7-10) Last Admin: 02/01/25 07:56 Dose: 0.5 mg Documented By: JOSSE Hydromorphone HCl (Hydromorphone Hcl 2 Mg Tablet) 2 mg PO Q4H PRN PRN Reason: Pain, Moderate(Pain Scale 4-6) Last Admin: 02/03/25 07:21 Dose: 2 mg Documented By: YEIOSN Piperacillin Sod/Tazobactam (Sod 4.5 gm/ Sodium Chloride) 100 mls @ 200 mls/hr IV Q6H [facility] Last Infusion: 02/03/25 09:16 Dose: Infused Documented By: YEISON Ketorolac Tromethamine (Ketorolac Tromethamine 15 Mg/Ml Vial) 15 mg IVPUSH Q6H [facility] Last Admin: 02/03/25 08:07 Dose: 15 mg Documented By: YEISON Melatonin (Melatonin 3 Mg Tablet) 6 mg PO BEDTIME PRN PRN Reason: Insomnia Naloxone HCl (Naloxone Hcl 0.4 Mg/Ml Vial) 0.04 mg IVPUSH Q5M PRN PRN Reason: Excessive sedation or RR < 8 Ondansetron HCl (Ondansetron Hcl 4 Mg/2 Ml Vial) 4 mg IVPUSH Q8H PRN PRN Reason: Nausea and Vomiting Sodium Chloride (0.9 % Sodium Chloride Flush 3 Ml Syringe) [facility] Last Admin: 02/03/25 08:11 Dose: 3 ml Documented By: YEISON Labs 02/01/25 05:42 02/01/25 05:42 Procedures Date of Service Date of Service: 02/03/25 Progress Note: A&P Assessment and plan (1) Colon obstruction: Status: Acute (2) S/P colostomy: Status: Acute Plan POD 3 following hand assisted diverting loop colostomy for obstructing rectal CA. Patient has some mild incisional pain but otherwise is stable. Ostomy is functioning well. Continue regular diet. Encouraged out of bed and ambulation, incentive spirometry. Possible discharge in a.m. Time Spent With Patient Time: Total time managing care of this patient today ____ minutes. Quality Stroke Does the patient have a stroke diagnosis?: No VTE Prior VTE?: No VTE Risk Level:: Surgical - moderate VTE Device Contraindication: N/A - Device Ordered VTE Drug Contraindication: N/A - Med Ordered
[2025-02-04 04:00] VITALS: BP 118/71; PULSE 52; RESP 16; TEMP 36.7; O2SAT 93
[2025-02-04 07:32] VITALS: BP 126/66; PULSE 79; RESP 16; TEMP 36; O2SAT 95
--- NOTE | 2025-02-04 07:46 | P.PNGS_ITS ---
Subjective Subjective Date of Service: 02/04/25 <Tania Holliday PA-C - Last Filed: 02/04/25 07:49> 02/04/25 <Tiburcio Kelly MD - Last Filed: 02/04/25 10:54> Interval history: Uneventful weekend. Tolerating solid diet, reported some nausea over the weekend. Ostomy functioning well and is participating in care. OOB and ambulating a little. Still taking IV analgesics. <Tania Holliday PA-C - Last Filed: 02/04/25 07:49> Physical Exam 2 Vital Signs: Vital Signs: Last Vital Signs Temp 96.8 F 02/04/25 07:32 Pulse 79 02/04/25 07:32 Resp 16 02/04/25 07:32 BP 126/66 02/04/25 07:32 Pulse Ox 95 02/04/25 07:32 O2 Del Method Room Air 02/04/25 07:32 O2 Flow Rate 2 01/31/25 19:31 BMI result Body Mass Index 24.2 <Tania Holliday PA-C - Last Filed: 02/04/25 07:49> Const: General: comfortable, no acute distress and alert <JEFF Navarro Last Filed: 02/04/25 07:49> Orientation/consciousness: patient oriented x3 <JEFF Navarro Last Filed: 02/04/25 07:49> Resp: Effort & Inspection: normal respiratory effort <Tania Holliday PA-C - Last Filed: 02/04/25 07:49> GI: Other: mildly distended ostomy remains edematous with but centrally, large amt of stool output incisions clean mild incision tenderness <Tania Holliday PA-C - Last Filed: 02/04/25 07:49> Palpation (GI): no guarding <JEFF Navarro Last Filed: 02/04/25 07:49> Percussion: Yes tympanic to percussion <JEFF Navarro Last Filed: 02/04/25 07:49> Skin: General skin exam: no rashes or lesions noted <JEFF Navarro Last Filed: 02/04/25 07:49> Neuro: General: patient oriented x3 and moves all extremities <Tania Holliday PA-C - Last Filed: 02/04/25 07:49> Objective Data Active Medications Calcium Carbonate (Calcium Carbonate 750 Mg Tab.Chew) 750 mg PO Q4H PRN PRN Reason: Heartburn Hydromorphone HCl (Hydromorphone Hcl 0.5 Mg/0.5 Ml Syringe) 0.5 mg IVPUSH Q3H PRN; Protocol PRN Reason: Pain, Severe (Pain Scale 7-10) Last Admin: 02/01/25 07:56 Dose: 0.5 mg Documented By: JOSSE Hydromorphone HCl (Hydromorphone Hcl 2 Mg Tablet) 2 mg PO Q4H PRN PRN Reason: Pain, Moderate(Pain Scale 4-6) Last Admin: 02/03/25 21:24 Dose: 2 mg Documented By: EBENEZER Piperacillin Sod/Tazobactam (Sod 4.5 gm/ Sodium Chloride) 100 mls @ 200 mls/hr IV Q6H [facility] Last Infusion: 02/04/25 03:30 Dose: Infused Documented By: EBENEZER Acetaminophen (Ofirmev) 1,000 mg in 100 mls @ 400 mls/hr IV Q6H [facility] Last Infusion: 02/04/25 03:00 Dose: Infused Documented By: EBENEZER Ketorolac Tromethamine (Ketorolac Tromethamine 15 Mg/Ml Vial) 15 mg IVPUSH Q6H [facility] Last Admin: 02/04/25 02:43 Dose: 15 mg Documented By: EBENEZER Melatonin (Melatonin 3 Mg Tablet) 6 mg PO BEDTIME PRN PRN Reason: Insomnia Naloxone HCl (Naloxone Hcl 0.4 Mg/Ml Vial) 0.04 mg IVPUSH Q5M PRN PRN Reason: Excessive sedation or RR < 8 Ondansetron HCl (Ondansetron Hcl 4 Mg/2 Ml Vial) 4 mg IVPUSH Q8H PRN PRN Reason: Nausea and Vomiting Sodium Chloride (0.9 % Sodium Chloride Flush 3 Ml Syringe) [facility] Last Admin: 02/03/25 21:26 Dose: 3 ml Documented By: EBENEZER <Tania Holliday PA-C - Last Filed: 02/04/25 07:49> Labs CBC & Chem 7: 02/01/25 05:42 02/01/25 05:42 <Tania Holliday PA-C - Last Filed: 02/04/25 07:49> Procedures Date of Service Date of Service: 02/04/25 <Tania Holliday PA-C - Last Filed: 02/04/25 07:49> 02/04/25 <Tiburcio Kelly MD - Last Filed: 02/04/25 10:54> Progress Note: A&P Assessment and plan (1) S/P colostomy: Status: Acute <Tania Holliday PA-C - Last Filed: 02/04/25 07:49> Assessment and Plan: Tolerating diet well Stoma with good function Abdomen is soft and benign I removed the stoma bridge Okay to DC home once good pain control on oral pain meds Discussed with daughter Jesse Seen and examined independently <Tiburcio Kelly MD - Last Filed: 02/04/25 10:54> (2) Colon obstruction: Status: Acute <Tania Holliday PA-C - Last Filed: 02/04/25 07:49> Assessment and Plan: POD #4 s/p hand assisted laparoscopic loop sigmoid colostomy for obstructing rectal CA. Doing well post op, clinically appearing well with clean incision, ostomy edematous but viable appearing and functioning well. Encouraged use of oral analgesics. If remains comfortable, stable for dc to home later today with VNA services. Patient comfortable with plan. Cont ostomy education. <Tania Holliday PA-C - Last Filed: 02/04/25 07:49> Time Spent With Patient Time: Total time managing care of this patient today ____ minutes. <Tania Holliday PA-C - Last Filed: 02/04/25 07:49> Quality Stroke Does the patient have a stroke diagnosis?: No <Tania Holliday PA-C - Last Filed: 02/04/25 07:49> VTE Prior VTE?: No <Tania Holliday PA-C - Last Filed: 02/04/25 07:49> VTE Risk Level:: Surgical - moderate <Tania Holliday PA-C - Last Filed: 02/04/25 07:49> VTE Device Contraindication: N/A - Device Ordered <Tania Holliday PA-C - Last Filed: 02/04/25 07:49> VTE Drug Contraindication: N/A - Med Ordered <Tania Holliday PA-C - Last Filed: 02/04/25 07:49>
[2025-02-04] MEDS: 0.9 % Sodium Chloride Flush 3 ML SYRINGE IVFLUSH ×3 (09:09→20:24)
--- NOTE | 2025-02-04 10:19 | MHC.CM.PN ---
Patient is not clear to discharge today. He continues to require IV pain medication. Discharge is anticipated tomorrow. DP Home with services for post op management and ostomy care management. DP home with [facility] patient will arrange for transportation home.
[2025-02-04 11:24] VITALS: BP 118/67; PULSE 69; RESP 18; TEMP 36.2; O2SAT 96
--- NOTE | 2025-02-04 14:03 | HO.OSTOMY ---
Ostomy Consult: Initial Teaching 44yr old male admitted to [facility] 01/31/25 see H&P for detailed history and admission.? Consult for new ostomy teaching. ?He had an Loop Colostomy creation on 01/31/[address] Kelly. ?Upon entry into patient's room, he is lying in his bed, he is alert and oriented x 3, he currently has no complaints. Materials Intern Present throughout consultation / teaching. Introductions were completed, he is agreeable to continuing with teaching. ? We discussed his pain control at 4/10 at the current moment, he reports increasing the use of his IS and ambulating the entire unit (1x today so far). ?We began by discussing general knowledge about the Colostomy and questions he had. ?We discussed opening and closing the ostomy pouch. He was able to independently provide a return demonstration on an empty pouch. ?He reports he already has been emptying his pouch in the toilet - he denies questions or concerns with this. We discussed the importance of emptying pouch when 1/3 to 1/2 full, how to empty pouch, and lining water with toilet paper to prevent splash back. With an empty Coloplast pouch he performed a demonstration. He was also educated on when to contact grid trimmer/Dr Kelly's office/seek emergency medical treatment. Patient was given some ostomy pouches for transition to home. Aware that Rx written for pouches and rings will be sent by Outpt nurse to [place] for home delivery.? Reviewed written education with patient and left at bedside for further review. ?He did watch the education videos supplied by [facility]. Permission was granted for pouch assessment and no leak was noted.? Stoma is dark red with two areas of necrotic tissue noted however remains viable.? Together we performed a stoma model change. He was agreeable to pouch change. He was changed in to flat 1 piece pouch cut to 50MM round - given the irregular shap of his stoma a barrier strip is recommended at next pouch change. This was discussed with patient sn he reports understanding. ?He reported having no questions at this time. ?Patient was made aware that I will return to bedside later in week for ongoing education - however to note patient seems to have a good understanding of care and material at this time. ?He will benefit from VNA services at time of discharge. ?All questions and concerns addressed at this time. Next teaching session goals: Steps to a pouch change he is able to recall We discussed the following steps: 1. Empty pouch before pouch change 2. Remove pouch using push/pull technique from top to bottom 3. Cleanse stoma and skin with tap water only - no soap or baby wipes 4. Pat dry 5. Measure stoma and cut new pouch no more than 1/8 inch larger than stoma and no smaller than stoma 6. If instructed by your ostomy nurse stretch barrier seal to the size of the stoma and press onto skin around stoma (up to the edge of the stoma but not onto the stoma) 7. Press the new pouch into place and hold for several minutes (close pouch tail) 8. Empty pouch when 1/3 to 1/2 full 9. Change pouch twice weekly on a schedule (for example, every Tuesday and ) and as needed for any leaking (feels like intense itch or burn at edge of stoma) 10. May order pre-cut pouches (already cut to size of stoma) once stoma measures the same size consistently. ?
[2025-02-04 15:38] VITALS: BP 128/71; PULSE 69; RESP 18; TEMP 36.6; O2SAT 93
[2025-02-04 19:38] VITALS: BP 132/73; PULSE 72; RESP 18; TEMP 36.8; O2SAT 96
[2025-02-05 03:12] VITALS: BP 127/71; PULSE 65; RESP 16; TEMP 36.4; O2SAT 93
--- NOTE | 2025-02-05 07:29 | P.PNGS_ITS ---
Subjective Subjective Date of Service: 02/05/25 <Tania Holliday PA-C - Last Filed: 02/05/25 07:32> 02/05/25 <Tiburcio Kelly MD - Last Filed: 02/05/25 08:46> Interval history: Feels well overall, pain is well controlled. Tolerating solid diet. Ambulating without difficulty. Ostomy functioning well. <Tania Holliday PA-C - Last Filed: 02/05/25 07:32> Physical Exam 2 Vital Signs: Vital Signs: Last Vital Signs Temp 97.5 F 02/05/25 03:12 Pulse 65 02/05/25 03:12 Resp 16 02/05/25 03:12 BP 127/71 02/05/25 03:12 Pulse Ox 93 02/05/25 03:12 O2 Del Method Room Air 02/05/25 03:12 O2 Flow Rate 2 01/31/25 19:31 BMI result Body Mass Index 24.2 <Tania Holliday PA-C - Last Filed: 02/05/25 07:32> Const: General: comfortable, no acute distress and alert <Tania Holliday PA-C - Last Filed: 02/05/25 07:32> Orientation/consciousness: patient oriented x3 <Tania Holliday PA-C - Last Filed: 02/05/25 07:32> Resp: Effort & Inspection: normal respiratory effort <Tania Holliday PA-C - Last Filed: 02/05/25 07:32> GI: Other: ostomy remains edematous but beefy red, soft brown stool in appliance <Tania Holliday PA-C - Last Filed: 02/05/25 07:32> Inspection: No distended and Yes incision (clean) <JEFF Navarro Last Filed: 02/05/25 07:32> Palpation (GI): Soft to palpation, Tenderness to palpation present (GI) (mild incisional) and no guarding <JEFF Navarro Last Filed: 02/05/25 07:32> Percussion: Yes normal to percussion <JEFF Navarro Last Filed: 02/05/25 07:32> Skin: General skin exam: no rashes or lesions noted <Tania Holliday PA-C - Last Filed: 02/05/25 07:32> Neuro: General: patient oriented x3 and moves all extremities <Tania Holliday PA-C - Last Filed: 02/05/25 07:32> Objective Data Active Medications Calcium Carbonate (Calcium Carbonate 750 Mg Tab.Chew) 750 mg PO Q4H PRN PRN Reason: Heartburn Hydromorphone HCl (Hydromorphone Hcl 0.5 Mg/0.5 Ml Syringe) 0.5 mg IVPUSH Q3H PRN; Protocol PRN Reason: Pain, Severe (Pain Scale 7-10) Last Admin: 02/01/25 07:56 Dose: 0.5 mg Documented By: JOSSE Hydromorphone HCl (Hydromorphone Hcl 2 Mg Tablet) 2 mg PO Q4H PRN PRN Reason: Pain, Moderate(Pain Scale 4-6) Last Admin: 02/04/25 20:17 Dose: 2 mg Documented By: JAKUB Piperacillin Sod/Tazobactam (Sod 4.5 gm/ Sodium Chloride) 100 mls @ 200 mls/hr IV Q6H [facility] Last Infusion: 02/05/25 03:11 Dose: Infused Documented By: JAKUB Acetaminophen (Ofirmev) 1,000 mg in 100 mls @ 400 mls/hr IV Q6H [facility] Last Infusion: 02/05/25 02:40 Dose: Infused Documented By: JAKUB Ketorolac Tromethamine (Ketorolac Tromethamine 15 Mg/Ml Vial) 15 mg IVPUSH Q6H [facility] Last Admin: 02/05/25 02:18 Dose: 15 mg Documented By: JAKUB Melatonin (Melatonin 3 Mg Tablet) 6 mg PO BEDTIME PRN PRN Reason: Insomnia Last Admin: 02/04/25 20:18 Dose: 6 mg Documented By: JAKUB Naloxone HCl (Naloxone Hcl 0.4 Mg/Ml Vial) 0.04 mg IVPUSH Q5M PRN PRN Reason: Excessive sedation or RR < 8 Ondansetron HCl (Ondansetron Hcl 4 Mg/2 Ml Vial) 4 mg IVPUSH Q8H PRN PRN Reason: Nausea and Vomiting Sodium Chloride (0.9 % Sodium Chloride Flush 3 Ml Syringe) 3 ml IVFLUSH QSHIFT [facility] Last Admin: 02/04/25 20:24 Dose: 3 ml Documented By: JAKUB <Tania Holliday PA-C - Last Filed: 02/05/25 07:32> Labs CBC & Chem 7: 02/01/25 05:42 02/01/25 05:42 <Tania Holliday PA-C - Last Filed: 02/05/25 07:32> Procedures Date of Service Date of Service: 02/05/25 <Tania Holliday PA-C - Last Filed: 02/05/25 07:32> 02/05/25 <Tiburcio Kelly MD - Last Filed: 02/05/25 08:46> Progress Note: A&P Assessment and plan (1) S/P colostomy: Status: Acute <Tania Holliday PA-C - Last Filed: 02/05/25 07:32> Assessment and Plan: States he feels well Tolerating diet well Good stoma function Abdomen is soft and benign He says he is ready to be discharged Discharge instructions reviewed We will see in the office He should also follow up with this oncologist Seen and examined independently <Tiburcio Kelly MD - Last Filed: 02/05/25 08:46> (2) Colon obstruction: Status: Acute <Tania Holliday PA-C - Last Filed: 02/05/25 07:32> Assessment and Plan: POD #5 s/p hand assisted laparoscopic loop sigmoid colostomy for obstructing rectal CA. He is doing well post op. Abd benign with clean incision and viable appearing ostomy with good output. Dc to home today with VNA services. Dc on short course of augmentin for PNA present on admission. Patient comfortable with plan. F/u in office in 1-2 weeks. <JEFF Navarro Last Filed: 02/05/25 07:32> Time Spent With Patient Time: Total time managing care of this patient today ____ minutes. <Tania Holliday PA-C - Last Filed: 02/05/25 07:32> Quality Stroke Does the patient have a stroke diagnosis?: No <Tania Holliday PA-C - Last Filed: 02/05/25 07:32> VTE Prior VTE?: No <Tania Holliday PA-C - Last Filed: 02/05/25 07:32> VTE Risk Level:: Surgical - moderate <Tania Holliday PA-C - Last Filed: 02/05/25 07:32> VTE Device Contraindication: N/A - Device Ordered <Tania Holliday PA-C - Last Filed: 02/05/25 07:32> VTE Drug Contraindication: N/A - Med Ordered <Tania Holliday PA-C - Last Filed: 02/05/25 07:32>
--- NOTE | 2025-02-05 07:32 | W.MHC.F2F ---
Service Date Service Date: 02/05/25 Encounter Date of encounter: 02/05/25 Reasons for Services Signs and symptoms assessed: abdominal pain, oral intake, incision appearance, ostomy appearance and output Reason for chcf: wound care and postoperative assessment and/or care Homebound: Leaving the home is medically contraindicated at this time without the asist of a device and/or another person due th the listed conditions above and below. Reason homebound: weakness related to hospital stay and unable to drive Homebound supporting statement: Mr. Garry Blackwood underwent a diverting loop sigmoid colostomy for obstructing rectal CA. He will need VNA services for ostomy care. Certification: Based on the above findings, I certify that this patient is confined to the home and needs intermittent chcf care, physical therapy and/or speech therapy, or continues to need occupational therapy. The patient is under my care, and I have initiated the establishment of the plan of care. The patient will be followed by a physician who will periodically review the plan of care. Time Spent With Patient Time: Total time managing care of this patient today ____ minutes.
[2025-02-05 08:00] VITALS: BP 127/74; PULSE 95; RESP 16; TEMP 36.9; O2SAT 94
--- NOTE | 2025-02-05 09:12 | MHC.CM.PN ---
IMM 01/3025 Patient is discharged today. Home services have been ordered. [facility] will provide services. Patient has arranged for transportation home.
--- NOTE | 2025-02-05 12:25 | HO.OSTOMY ---
Ostomy Consult: Follow up Teaching 44yr old [place] [facility] see H&P for detailed history and admission.? Consult for new ostomy teaching. ?He had an Loop Colostomy creation on 01/31/[address] Kelly. ?Upon entry into his room he was packing his belonging and reports he is ready to go. He informs me he continues to empty his pouch independently without issue and changed his pouch this morning. He was questioned as to why he changed his pouch this morning he reported he wanted an opaque pouch on and that he really did not like the way the clear pouch looked. He was noted to be in convex pouch given to him as a sample for future use however he does not need convexity at this time and the pouch was pulling away from his abdomen. He was agreeable to a pouch change. He was placed in a opaque Flat 1 piece coloplast pouch # [id number] cut to 50mm and brava barrier strip paste used to create a seal. applied without incident. Patient has supplies to go home and is agreeable to coloplast care package to be sent to him. All questions answered prior to ending consultation. Details from prior assessment: Upon entry into patient's room, he is lying in his bed, he is alert and oriented x 3, he currently has no complaints. Corporate Legal Secretary Present throughout consultation / teaching. Introductions were completed, he is agreeable to continuing with teaching. ? We discussed his pain control at 4/10 at the current moment, he reports increasing the use of his IS and ambulating the entire unit (1x today so far). ?We began by discussing general knowledge about the Colostomy and questions he had. ?We discussed opening and closing the ostomy pouch. He was able to independently provide a return demonstration on an empty pouch. ?He reports he already has been emptying his pouch in the toilet - he denies questions or concerns with this. We discussed the importance of emptying pouch when 1/3 to 1/2 full, how to empty pouch, and lining water with toilet paper to prevent splash back. With an empty Coloplast pouch he performed a demonstration. He was also educated on when to contact jeweler apprentice/Dr Kelly's office/seek emergency medical treatment. Patient was given some ostomy pouches for transition to home. Aware that Rx written for pouches and rings will be sent by Outpt nurse to [place] for home delivery.? Reviewed written education with patient and left at bedside for further review. ?He did watch the education videos supplied by [facility]. Permission was granted for pouch assessment and no leak was noted.? Stoma is dark red with two areas of necrotic tissue noted however remains viable.? Together we performed a stoma model change. He was agreeable to pouch change. He was changed in to flat 1 piece pouch cut to 50MM round - given the irregular shap of his stoma a barrier strip is recommended at next pouch change. This was discussed with patient sn he reports understanding. ?He reported having no questions at this time. ?Patient was made aware that I will return to bedside later in week for ongoing education - however to note patient seems to have a good understanding of care and material at this time. ?He will benefit from VNA services at time of discharge. ?All questions and concerns addressed at this time. Next teaching session goals: Steps to a pouch change he is able to recall We discussed the following steps: 1. Empty pouch before pouch change 2. Remove pouch using push/pull technique from top to bottom 3. Cleanse stoma and skin with tap water only - no soap or baby wipes 4. Pat dry 5. Measure stoma and cut new pouch no more than 1/8 inch larger than stoma and no smaller than stoma 6. If instructed by your ostomy nurse stretch barrier seal to the size of the stoma and press onto skin around stoma (up to the edge of the stoma but not onto the stoma) 7. Press the new pouch into place and hold for several minutes (close pouch tail) 8. Empty pouch when 1/3 to 1/2 full 9. Change pouch twice weekly on a schedule (for example, every Tuesday and ) and as needed for any leaking (feels like intense itch or burn at edge of stoma) 10. May order pre-cut pouches (already cut to size of stoma) once stoma measures the same size consistently. ?
--- NOTE | 2025-02-05 12:55 | PM.DS ---
DS: Providers Provider Date of Service: 02/05/25 Date of admission: 01/31/25 07:55 Date of discharge: 02/05/25 Primary care physician: Betty Mckeon MD Attending physician on admission: Tiburcio Kelly Consults: 01/31/25 08:00 Consult to Ostomy Care Routine Attending physician on discharge: Tiburcio Kelly DS: Diagnosis Discharge Diagnosis (1) S/P colostomy: Status: Acute (2) Colon obstruction: Status: Acute DS: Summary Hospital Course Hospital Course: HPI AT ADMISSION: Jose Armando Blackwood is a 44 year old male with PMH of rectal CA presenting with abdominal pain for 3 days. He reports he developed diffuse abdominal pain three days ago associated with obstipation. He has not passed much flatus or had a bowel movement in over 3 days and prior to this the stools were smaller in caliber. The pain was associated with nausea and vomiting. He reports being diagnosed with colon CA December 2023 in [place] on colonoscopy. He was having blood in his stools at that time. Apparently, they attempted to do a colon resection for the cancer at that time but during the procedure they found that the cancer was rectal and procedure was aborted. He reports he had been undergoing chemotherapy in [place] and then continued when he moved to the 4 months ago. He sees Dr. Brooks for oncology at [facility]. He denies prior PMH and denies any daily medications. Last chemo was Tuesday. He reports colon CA in father who two years ago from it. Work up in the ED included CBC, BMP, LFTs which was significant for leukocytosis of 13.0, mild hypokalemia. CT scan abd pelvis was performed, official read pending, but shows dilated colon loops with narrowing in the sigmoid, possible cecal pneumatosis however low likelihood per radiology. CXR also shows small patchy airspace disease left lower lobe. HOSPITAL COURSE: He was admitted to the surgical service for further treatment of the colonic obstruction. Case was discussed with his oncologist and records were obtained. He had been undergoing neoadjuvant chemotherapy for rectal cancer FOLFOX with last chemotherapy session last week. 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 He therefore his being followed by Oncology in [facility]. He had an MRI done January 29 shows circumferential wall thickening with no luminal narrowing in the rectum consistent with a stricture. It was therefore recommended to proceed with hand assisted laparoscopic diverting loop colostomy in view of the obstruction. He has been added onto the OR schedule for that day. Cont NPO, IVF, IV zosyn for pneumonia. On 01/31/25, Hand assisted laparoscopic loop sigmoid colostomy was performed by Dr. Kelly without immediate complication. The patient tolerated the procedure well. He had an uncomplicated recovery course. His ostomy began working immediately following the procedure with evacuation of large amount of soft brown stools. He remained inpatient for 5 days post operatively for pain control. His activity was increased. He was weaned off IV analgesics. Ostomy education was performed. His ostomy bridge was removed. On the day of discharge, felt well and was tolerating a solid diet without nausea or vomiting, had good pain control and was ambulating without difficulty. He was hemodynamically stable. His abdomen was benign with appropriate post op tenderness and clean and intact dressings. He felt ready for discharge. He was discharged to home on 02/05/25 in stable condition with VNA services. He was discharged on a short course of augmentin for his pneumonia present on admission. He is to follow up in the office in 1-2 weeks. He is to follow up with his PCP and oncologist. Status at Discharge Functional status at discharge: independent ambulation Overall status at discharge: patient is progressing back to baseline Time Attestation Discharge Coordination Time (in mins): 40 Quality: Safe Use of Opioids Does Pt have an Active Cancer Diagnosis on the Problem List?: Yes Opioid Measure Date for [facility] Report: 01/06/25 Opioid Measure Time for [facility] Report: 13:45 Quality: Stroke Does the patient have a stroke diagnosis?: No Physical Exam Vital Signs: Vital Signs: Last Vital Signs Temp 98.5 F 02/05/25 08:00 Pulse 95 02/05/25 08:00 Resp 16 02/05/25 08:00 BP 127/74 02/05/25 08:00 Pulse Ox 94 02/05/25 08:00 O2 Del Method Room Air 02/05/25 08:00 O2 Flow Rate 2 01/31/25 19:31 BMI result Body Mass Index 24.2 Const: General: comfortable, no acute distress and alert Orientation/consciousness: patient oriented x3 Resp: Effort & Inspection: normal respiratory effort, able to speak in complete sentences and not tachypneic GI: Other: ostomy edematous but viable appearing with good soft output Inspection: No distended and Yes incision (clean) Palpation (GI): Soft to palpation, Tenderness to palpation present (GI) (mild incisional) and no guarding Percussion: Yes normal to percussion Skin: General skin exam: no rashes or lesions noted Neuro: General: patient oriented x3 and moves all extremities Discharge Plan Discharge Anticipated Discharge Date/Time: 02/04/25 10:47 Patient Disposition: Home Health Service Discharge Diagnosis: Rectal obstruction from cancer, pneumonia Referrals: Monica CARBAJAL [Outside] - 1 Week Betty Mckeon MD [Primary Care Provider, Family Practice] - 1 Week Tiburcio Kelly MD [Physician, General Surgery] - 2 Weeks Discharge Medications: New ibuprofen 600 mg tablet 600 mg PO Q6H PRN (Reason: pain) Qty: 30 0RF hydromorphone [Dilaudid] 2 mg tablet 2 mg PO Q4-6H PRN (Reason: pain (scale score 7-10)) Qty: 24 0RF Rx Instructions: Partial Fill upon patient request. amoxicillin-pot clavulanate [Augmentin] 500-125 mg tablet 1 tab PO BID Qty: 8 0RF Discharge Orders: Discharge Order (Routine); Ordered 02/05/25 Ordered By: Tania Holliday Diet: Advance to usual diet Activity on Discharge: No heavy lifting Stand Alone Forms: Patient Portal Discharge page Print Language: Zimbabwean Activity Restrictions/Additional Instructions: If the incision area is tender, you may apply an ice pack for short intervals (No more than 20 minutes on, followed by at least 20 minutes off). Do not apply heat. Do not use creams, lotions, or topical antibiotics unless instructed to do so by your surgeon. These can cause infection or allergic reaction. No lifting more than 20 lbs Okay to shower No strenuous activities Call the office for follow-up in 2 weeks - with Dr. Kelly Call Your Doctor If: -Your temperature exceeds 101.5? F -You experience excessive pain or swelling -You have an unexpected reaction to medication -You have excessive bleeding -You experience continued vomiting/nausea -Your incision begins to separate -Your incision shows signs of infection such as increased redness, swelling, excessive pain, drainage (light blood or clear fluid is normal) or heat Ostomy recommendations: 1. Empty pouch before pouch change 2. Remove pouch using push/pull technique from top to bottom 3. Cleanse stoma and skin with tap water only - no soap or baby wipes 4. Pat dry 5. Measure stoma and cut new pouch no more than 1/8 inch larger than stoma and no smaller than stoma 6. If instructed by your ostomy nurse stretch barrier seal to the size of the stoma and press onto skin around stoma (up to the edge of the stoma but not onto the stoma) 7. Press the new pouch into place and hold for several minutes (close pouch tail) 8. Empty pouch when 1/3 to 1/2 full 9. Change pouch twice weekly on a schedule (for example, every Tuesday and ) and as needed for any leaking (feels like intense itch or burn at edge of stoma) Care Plan Goals: Return to baseline Continue treatment for rectal cancer Health Concerns: Rectal cancer Recent rectal obstruction Plan of Treatment: Continue neoadjuvant treatment at [facility] Follow up in the office Assessment: Doing well Discharge Date/Time: 02/05/25 10:14
== END 2025-02-05 10:14 | disposition home health service (06) | DRG 231 ==
LOC: HO.ED 07:18 → HO.EDOVER 08:13 → HO.S3 08:57
PROVIDERS: Surgery; Admitting Provider Physician Assistant Surgical; Emergency Provider Emergency Medicine; PCP Family Medicine; Visit Provider Physician Assistant Surgical
PROC: 0DTE0ZZ Resection of Large Intestine, Open Approach (ICD-10-PCS; principal; 2025-01-31 13:30)
DX: C21.8 Malignant neoplasm of overlapping sites of rectum, anus and anal canal (principal); J18.9 Pneumonia, unspecified organism; F17.210 Nicotine dependence, cigarettes, uncomplicated; Z20.822 Contact with and (suspected) exposure to COVID-19; G89.18 Other acute postprocedural pain; Z71.6 Tobacco abuse counseling
CPT/HCPCS: 36415; 71045; 74177; 80048; 80053; 83605; 83690; 85025; 86850; 86900; 86901; 87502; 87635; 93005; 99285; J0131; J0665; J1100; J1171; J1885; J2003; J2405; J2543; J2704; J3010; J3480; J7120; Q9967

== ENCOUNTER → 2025-01-31 05:33 | Outpatient (BNV) | payer MEDICAID, SELFPAY | PROVIDERS: Emergency Provider Emergency Medicine; PCP Family Medicine; Visit Provider Radiology Diagnostic Radiology | DX: K56.609 Unspecified intestinal obstruction, unspecified as to partial versus complete obstruction (principal); R05.9 Cough, unspecified | CPT/HCPCS: 71045; 74177 ==

== ENCOUNTER 2025-01-31 07:55 | Outpatient (BNV) | payer MEDICAID, SELFPAY | END 2025-01-31 09:15 | PROVIDERS: Admitting Provider Physician Assistant Surgical; Emergency Provider Emergency Medicine; PCP Family Medicine; Visit Provider Internal Medicine Cardiovascular Disease | DX: R94.31 Abnormal electrocardiogram [ECG] [EKG] (principal); Z01.810 Encounter for preprocedural cardiovascular examination | CPT/HCPCS: 93010 ==

== ENCOUNTER → 2025-01-31 07:55 | Outpatient (BNV) | payer MEDICAID, SELFPAY | PROVIDERS: Admitting Provider Physician Assistant Surgical; Emergency Provider Emergency Medicine; PCP Family Medicine; Visit Provider Surgery | DX: K56.609 Unspecified intestinal obstruction, unspecified as to partial versus complete obstruction (principal); Z93.3 Colostomy status | CPT/HCPCS: 99024; 99499 ==

== ENCOUNTER 2025-02-14 09:41 | Outpatient (AMB) | payer MEDICAID, SELFPAY ==
--- NOTE | 2025-02-14 09:46 | A.OFFVIS_ITS ---
Vital Signs 02/14/25 09:56 Height 5 ft 11 in Weight 174 lb BMI 24.3 BP 153/85 H Blood Pressure Location Lt brachial Position Sitting Pulse 70 Intake Visit Reasons: S/P SBO Intake Note: This patient presents for post-op assessment status post Hand assisted la paroscopic loop sigmoid colostomy. (01/31/25) Pt c/o; admits to sore and tender, has adolph a little red around the area, need some ostomy bags Minute Clerk For Basic Traffic Required: Yes Minute Clerk For Basic Traffic Language: Dean Of Education Services: Minute Clerk For Basic Traffic Present Minute Clerk For Basic Traffic Name: Fouzia CALVILLO Information Interpreted: non-clinical & clinical Section Beamer: Section Beamer Present Accompanied by: Self / Same As Patient Allergies morphine Allergy (Verified 02/14/25 09:56) Anaphylaxis HPI HPI S/P SBO: Details: 44-year-old male with known locally advanced rectal cancer for a follow up. He had undergone a diverting loop sigmoid colostomy as an emergency last 01/31/2025 because of obstruction from the tumor. He was discharged on postop day number 5. He has good oral intake. His stoma is functioning well. He denies significant pain. [facility] Medical History (Updated 02/14/25 @ 09:57 by Tiburcio Kelly MD) Rectal cancer Colorectal cancer Surgical History Hx of surgical procedure Social History Household Members: Other Household Members Other:: Aunt Housing: Apartment Do you presently have visiting nurse or other home services: No Alcohol intake: current Alcohol intake frequency: holidays/special occasions only Patient Tobacco Use Status: Current everyday Tobacco user Tobacco use type: Cigarette Cigarettes Per Day: 2 service: No Review of Systems Const Denies chills and Denies fever(s) Card Denies chest pain at rest GI Denies vomiting Physical Exam Const General: comfortable and no acute distress Resp Effort & Inspection: normal respiratory effort GI Other: All incisions are healing well with adolph in place, colostomy functioning well Palpation (GI): Soft to palpation, not firm and no guarding Assessment & Plan Assessment & Plan (1) Rectal cancer: Code(s): C20 - Malignant neoplasm of rectum Category: Medical Plan: He has a advanced rectal cancer and had obstruction from the tumor so he underwent emergency loop sigmoid colostomy. He is doing well. His stoma is functioning well. He has good oral intake I removed all his skin adolph He says he has a follow up with his oncologist today. He we will benefit from further neoadjuvant treatment because of his locally advanced rectal cancer. I advised him to avoid lifting anything more than 20 lb for probably 3-4 weeks. He can otherwise follow up with me on a p.r.n. basis Coding Level of Care Code Global (07258) Diagnoses Rectal cancer C20
[2025-02-14 09:56] VITALS: BP 153/85; PULSE 70; BMI 24.3
== END 2025-02-14 10:23 | disposition home or self-care (01) ==
LOC: HO.HGS 09:42
PROVIDERS: PCP Family Medicine; Visit Provider Surgery
DX: C20 Malignant neoplasm of rectum (principal)
CPT/HCPCS: 99024

== ENCOUNTER → 2025-02-14 09:41 | Outpatient (BNVA) | payer MEDICAID, SELFPAY | PROVIDERS: PCP Family Medicine; Visit Provider Surgery | DX: Z48.02 Encounter for removal of sutures (principal); C20 Malignant neoplasm of rectum; Z98.890 Other specified postprocedural states | CPT/HCPCS: 99212 ==

== ENCOUNTER 2025-02-28 13:42 | Outpatient (AMB) | payer MEDICAID, SELFPAY ==
--- NOTE | 2025-02-28 13:47 | MHC.OFFVIS ---
Vital Signs 02/28/25 13:52 Height 5 ft 11 in Weight 171 lb 8 oz BMI 23.9 Intake Visit Reasons: possible benedict-stomal hernia Intake Note: This patient presents for an assessment for question parastomal hernia. Pt c/o; reports bulge stoma site, reports when he was hospitalized he had pneumonia and thinks the bulge might of been because of the coughing. [employer]man Required: Yes [employer]man Language: Senior Bioinformatics Scientist Services: [employer] Crewman Present [employer] Crewman Name: Kaylah Information Interpreted: non-clinical & clinical Accompanied by: Self / Same As Patient Allergies morphine Allergy (Verified 02/28/25 13:54) Anaphylaxis HPI HPI possible benedict-stomal hernia: Details: He had undergone a diverting loop sigmoid colostomy an obstructing rectal cancer last 01/31/2025. He tolerated procedure well. He had been undergoing neoadjuvant chemotherapy for his advanced rectal cancer He has been doing well postop. However, he does notice a hernia around his new colostomy. His stoma has been otherwise functioning very well. He has good oral intake. [facility] Medical History (Updated 02/28/25 @ 14:04 by Tiburcio Kelly MD) Parastomal hernia Rectal cancer Colorectal cancer Surgical History Hx of surgical procedure (~01/31/25) Social History Household Members: Other Household Members Other:: Aunt Housing: Apartment Do you presently have visiting nurse or other home services: No Alcohol intake: current Alcohol intake frequency: holidays/special occasions only Patient Tobacco Use Status: Current everyday Tobacco user Tobacco use type: Cigarette Cigarettes Per Day: 2 service: No Review of Systems Const Denies chills and Denies fever(s) Card Denies chest pain at rest Resp Denies cough GI Details: Has colostomy Denies abdominal pain Physical Exam Vital Signs: BMI result Body Mass Index 23.9 Const General: comfortable and no acute distress GI Other: Midline incision well healed, he has a parastomal hernia, reducible, stoma with good output Palpation (GI): Soft to palpation, not firm and nontender Assessment & Plan Assessment & Plan (1) Parastomal hernia: Code(s): K43.5 - Parastomal hernia without obstruction or gangrene Category: Medical Plan: He had undergone urgent sigmoid loop colostomy last 01/31/2025 for an obstructing rectal cancer was locally advanced. He is actually doing very well. However, he had developed a parastomal hernia around his colostomy His stoma is functioning well otherwise I told him that this can happen with his stoma. He currently undergoing treatment for his rectal cancer and eventually we will have definitive resection. I told him that it may be best to wait for his definitive resection prior to having this parastomal hernia repaired . It does understand that there may be some risk of acute incarceration with this parastomal hernia I therefore advised him to make sure that he follows up closely with this oncologist in [facility] as well as colorectal surgeon He seemed to be understanding of the above. Coding Level of Care Code Global (79457) Diagnoses Parastomal hernia K43.5
[2025-02-28 13:52] VITALS: BMI 23.9
--- OUTSIDE RECORDS SUMMARY | 2025-02-28 17:40 | XMS_ITS | Encounter Summary ---
Author Organization [employer] Address [address] [place] [address] Care Team Providers Care Patient Accounts Clerk Name Role Phone Susannah Ryan MD Primary Care Provider [phone] Reason for Visit * Reason Comments Care Coordination CHW outreach for SDO H PT-1 and food needs-referral completed Encounter Details Date Type Department Care Team (Latest Contact Info) Description 02/26/2025 Patient Outreach [facility] [address] [place] [address] Susannah Ryan MD [address] [place] [address] Care Coordination (CHW outreach for SDOH PT-1 and food needs-referral completed /) Social History Tobacco Use Types Packs/Day Years [...] with others, in a hotel, in a care home, living outside on the street, on a [...] AM EDT documented as of this encounter Progress Notes * Shane Yancey - 02/26/2025 3:21 PM EDT CHW Shane Yancey, placed outbound call to patient for assistance with SDOH as a referral was received by the provider. Patient's name and were confirmed. Patient screened positive for the following SDOH food insecurities. Patient states family in on SNAP program at this time. CHW referral patient to the local list of pantries in the area for help. PT-1 requested was send out in behalf of patient for [facility] appt. Patient verbalizes understanding, and able to agree with plan to follow up.Patient educated on extended clinic hours on Mondays through Wednesdays, and Walk-In Urgent Care Located in [facility] of [facility]. Patient provided with after-hours line for [facility], , which offer night time triage service and option to transfer to production sampler provider if needed. documented in this encounter Plan of Treatment Not on file documented as of this encounter Visit Diagnoses Not on filedocumented in this encounter Additional Health Concerns Assessment Noted Time PHQ-9 Depression Total Score: 0 12/29/19 25 9:13 AM EDT documented as of this encounter Care Teams Patient Accounts Clerk Relationship Specialty Start Date End Date Susannah Ryan MD [address] [place] [address] PCP - General Family Medicine 12/28/24 Horacio Brooks MD [facility] Hematology/Oncology 12/11/24 Monica VNA 02/06/25 documented as of this encounter
--- OUTSIDE RECORDS SUMMARY | 2025-02-28 17:40 | XMS_ITS | Clinical Summary ---
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 Came from [place] to area 08/2024. ALURA, [id number]. Followed with Dr. Horacio Brooks MD at [facility]. On neoadjuvant FOLFOX regimen for 4 cycles starting 11/14/24. Assessment & Plan (12/11/2024 2:03 PM EDT): Diagnosed with proximal rectal or rectosigmoid adenocarcinoma in [place] 12/2023, s/p neoadjuvant chemotherapy, most probably on FOLFOX from 03/2024-05/2024. Ex lab done with no resection in [place]. Came from [place] to area 08/2024. LAURA, [id number]. Followed with Dr. Horacio Brooks MD at [facility]. On neoadjuvant FOLFOX regimen for 4 cycles starting 11/14/24. He reports he does not have a PCP. Referred to colorectal by oncology 11/27/24. Will schedule RAFA. Encounters Date Type Department Care Team Description 02/26/2025 Patient Outreach [address] [address] Susannah Ryan MD Care Coordination (CHW outreach for SDOH PT-1 and food needs-referral completed /) 02/26/[address] [address] Susannah Ryan MD pt1 02/05/[address] [address] Susannah Ryan MD FYI 01/31/2025 Orders Only [facility] External Provider, [facility] 12/28/2024 9:00 AM EDT Office Visit [address] [address] Susannah Ryan MD Colorectal cancer (CMS/HCC) (Primary Dx); Overweight; Dietary counseling; Exercise counseling; Housing situation unstable; Food insecurity 12/28/2024 Travel 12/26/[address] [address] Susannah Ryan MD chart prep 12/21/2024 Patient Outreach [address] [address] Susannah Ryan MD Care Coordination (CHW outreach for SDOH housing search-referral completed ) 12/21/2024 Patient Outreach [address] [address] Susannah Ryan MD Pre-visit Planning (SDOH Screening positive and Tobacco screening negative) 12/11/2024 1:00 PM EDT [facility] [address] [address] Betty Mckeon MD Contusion of rib, left, initial encounter (Primary Dx); Colorectal cancer (CMS/HCC) 12/11/2024 Results Follow-Up [address] [address] Betty Mckeon MD XR Ribs 3 Views Left w/ Chest, CBC auto differential, Comprehensive Metabolic Panel, Additional followed-up results: 3 12/11/2024 Orders Only [address] [address] Betty Mckeon MD 12/11/2024 Travel 12/03/2024 10:30 AM EDT Office Visit [facility] [address] [place] [address] Eda Parker DDS Dental caries (Primary Dx) [...] with others, in a hotel, in a detention, living outside on the street, on a [...] of 2 - PCV) 1999 COVID-19 Vaccine ( - 2023-2 5 season) 2025 Influenza Vaccine [...] Procedure Name Priority Date/Time Associated Diagnosis Comments CT ABDOMEN PELVIS W CONTRAST Routine 01/31/2025 8:03 AM EDT XR CHEST 1 VIEW Routine 01/31/2025 6:47 AM EDT COVID-19 ID NOW (CHOI) Routine 01/31/2025 5:20 [...] Recently Relevant to Health Maintenance Results * CT Abdomen Pelvis w/ Contrast (01/31/2025 8:03 AM EDT) Anatomical Region Laterality Modality Body, Pelvis, Abdomen Computed T omography 01/31/2025 8:03 AM EDT Narrative 01/31/2025 8:04 AM EDT [place] [address] [address] Scan Report Signed with Addenda Patient: Jose Armando Luther MR#: [id number] : 1980 Acct:[id number] Age/Sex: 44 / M ADM Date: 01/31/25 Loc: .ED Attending Dr: Ordering Physician: Marimar Madera MD Date of Service: 01/31/25 Procedure(s): CT abdomen pelvis w IV con Accession Number(s): [id number] cc: Betty Mckeon MD; Marimar Madera MD Report Number: [id number]: Total DLP = 551.00 mGy-cm Reason for Exam: bilat abd pain, hx colon ca ADDENDUM This document has been electronically signed by: Matt Cunningham MD on 01/31/2025 08:03:12 ADDENDUM: This report was discussed with MESHA PRECIADO on Jan 31, 2025 08:11:00 EDT. This document has been electronically signed by: Aranza Ramírez on 01/31/2025 08:11:52 Addendum Dictated By: Matt Cunningham MD Addendum Signed By: <Electronically signed by Matt Cunningham MD in OV> 01/31/25812 Addendum Cosigned By: DD/ TD/TT: 01/31/25 CLINICAL HISTORY: bilat abd pain, hx colon ca CT abdomen and pelvis with IV contrast Comparison: None Findings: Reticular nodular opacities left lower lobe probably inflammatory can not exclude aspiration pneumonitis. Subsegmental atelectasis right base. No dependent layering pleural effusions. The heart is not enlarged. Coronary artery calcifications: None. Liver normal size and contour. No focal hepatic lesions. Patent hepatic and portal veins. Physiologic distention of the gallbladder with no radiopaque gallstones. Homogeneous enhancement of the pancreas. No splenomegaly. Normal adrenal glands. Symmetrical renal excretion with no segmental or diffuse renal parenchymal disease or evidence of obstructive uropathy/hydroureteronephrosis. Normal caliber abdominal aorta. Marked colonic distention fluid-filled down to level of the sigmoid colon which is partially decompressed with mural thickening. There is a probable stenosis or colonic mass distal sigmoid colon. Correlate with any recent colonoscopy. There is a obstructive component present.No free air or portal venous air. Air is seen outlining the colonic contents of the right hemicolon probably intraluminal but pneumatosis intestinalis can not be excluded. Appendix not identified. Mildly distended fluid-filled loops of small bowel no significant diverticular disease.Shotty mesenteric lymph nodes partially decompressed urinary bladder. Mild prostatomegaly. No vertebral body compression fractures or spondylolisthesis. No bony destructive lesions. Impression: 1. Distal colonic obstruction with a probable stricture/mass distal sigmoid colon. Mildly distended fluid-filled loops of mid and distal small bowel. Air is noted outlining the fecal contents in the colon probably intraluminal rather than pneumatosis intestinalis which can not be entirely excluded. Heavy stool burden. No free air or portal venous air is demonstrated. Clinical correlation. 2. Reticular nodular opacities left lower lobe probably inflammatory can not exclude aspiration pneumonitis. This document has been electronically signed by: Matt Cunningham MD on 01/31/2025 08:03:12 Dictated By: Matt Cunningham MD Signed By: <Electronically signed by Matt Cunningham MD in OV> 01/31/25802 DD/ 2 TD/TT: 01/31/25802 Cfo: Procedure Note Donleslyraetremaineter, Image - 01/31/[address] [place] [address] [address] Scan Report Signed with Addenda Patient: Jose Armando Luther#: [id number] : 1980Acct:[id number] Age/Sex: 44 / MADM Date: 01/31/25 Loc: HO.ED Attending Dr: Ordering Physician: Marimar Madera MD Date of Service: 01/31/25 Procedure(s): CT abdomen pelvis w IV con Accession Number(s): [id number] cc: Betty Mckeon MD; Marimar Madera MD Report Number: [id number]: Total DLP = 551.00 mGy-cm Reason for Exam: bilat abd pain, hx colon ca ADDENDUM This document has been electronically signed by: Matt Cunningham MD on 01/31/2025 08:03:12 ADDENDUM: This report was discussed with MESHA PRECIADO on Jan 31, 2025 08:11:00 EDT. This document has been electronically signed by: Aranza Ramírez on 01/31/2025 08:11:52 Addendum Dictated By: Matt Cunningham MD Addendum Signed By: <Electronically signed by Matt Cunningham MD in OV> 01/31/25812 Addendum Cosigned By: DD/ TD/TT: 01/31/25 CLINICAL HISTORY: bilat abd pain, hx colon ca CT abdomen and pelvis with IV contrast Comparison: None Findings: Reticular nodular opacities left lower lobe probably inflammatory can not exclude aspiration pneumonitis. Subsegmental atelectasis right base. No dependent layering pleural effusions. The heart is not enlarged. Coronary artery calcifications: None. Liver normal size and contour. No focal hepatic lesions. Patent hepatic and portal veins. Physiologic distention of the gallbladder with no radiopaque gallstones. Homogeneous enhancement of the pancreas. No splenomegaly. Normal adrenal glands. Symmetrical renal excretion with no segmental or diffuse renal parenchymal disease or evidence of obstructive uropathy/hydroureteronephrosis. Normal caliber abdominal aorta. Marked colonic distention fluid-filled down to level of the sigmoid colon which is partially decompressed with mural thickening. There is a probable stenosis or colonic mass distal sigmoid colon. Correlate with any recent colonoscopy. There is a obstructive component present.No free air or portal venous air. Air is seen outlining the colonic contents of the right hemicolon probably intraluminal but pneumatosis intestinalis can not be excluded. Appendix not identified. Mildly distended fluid-filled loops of small bowel no significant diverticular disease.Shotty mesenteric lymph nodes partially decompressed urinary bladder. Mild prostatomegaly. No vertebral body compression fractures or spondylolisthesis. No bony destructive lesions. Impression: 1. Distal colonic obstruction with a probable stricture/mass distal sigmoid colon. Mildly distended fluid-filled loops of mid and distal small bowel. Air is noted outlining the fecal contents in the colon probably intraluminal rather than pneumatosis intestinalis which can not be entirely excluded. Heavy stool burden. No free air or portal venous air is demonstrated. Clinical correlation. 2. Reticular nodular opacities left lower lobe probably inflammatory can not exclude aspiration pneumonitis. This document has been electronically signed by: Matt Cunningham MD on 01/31/2025 08:03:12 Dictated By: Matt Cunningham MD Signed By: <Electronically signed by Matt Cunningham MD in OV> 01/31/25 08 DD/ 08 TD/TT: 01/31/25 08 Cfo: [facility] External Provider IMG CT PROCEDURES Edited Result - Final * XR Chest 1 View (01/31/2025 6:47 AM EDT) Anatomical Region Laterality Modality Chest Radiographic Trudi ging 01/31/2025 6:47 AM EDT Narrative 01/31/2025 6:50 AM EDT [address] [address] XRay Report Signed Patient: Jose Armando Luther MR#: [id number] : 1980 Acct:[id number] Age/Sex: 44 / M ADM Date: 01/31/25 Loc: HO.ED Attending Dr: Ordering Physician: Marimar Madera MD Date of Service: 01/31/25 Procedure(s): XR chest 1V Accession Number(s): [id number] cc: Betty Mckeon MD; Marimar Madera MD Reason for Exam: cough, on chemo, r/o pna CLINICAL HISTORY: cough, on chemo, r o pna 1 view chest x-ray. Comparison: CR/SR - XR RIBS 3 VIEWS MINIMUM WITH CHEST LEFT - 12/11/24 14:00 EDT Findings: Normal lung volumes. New small patchy airspace disease left lower lobe probably pneumonic. No pneumothorax or pleural effusion. Heart size normal. No passive venous congestion. No midline shift or tracheal deviation. No acute fracture. Left-sided tunneled venous catheter tip SVC. Impression: 1. New small patchy airspace disease left lower lobe probably pneumonic. No parapneumonic effusion. This document has been electronically signed by: Matt Cunningham MD on 01/31/2025 06:47:49 Dictated By: Matt Cunningham MD Signed By: <Electronically signed by Matt Cunningham MD in OV> 01/31/2549 DD/ 6 TD/TT: 01/31/25646 Cfo: Procedure Note Donotuseinterpreter, Image - 01/31/2025 [place] [address] XRay Report Signed Patient: Jose Armando LutherMR#: [id number] : 1980Acct:[id number] Age/Sex: 44 / MADM Date: 01/31/25 Loc: .ED Attending Dr: Ordering Physician: Marimar Madera MD Date of Service: 01/31/25 Procedure(s): XR chest 1V Accession Number(s): [id number] cc: Betty Mckeon MD; Marimar Madera MD Reason for Exam: cough, on chemo, r/o pna CLINICAL HISTORY: cough, on chemo, r o pna 1 view chest x-ray. Comparison: CR/SR - XR RIBS 3 VIEWS MINIMUM WITH CHEST LEFT - 12/11/24 14:00 EDT Findings: Normal lung volumes. New small patchy airspace disease left lower lobe probably pneumonic. No pneumothorax or pleural effusion. Heart size normal. No passive venous congestion. No midline shift or tracheal deviation. No acute fracture. Left-sided tunneled venous catheter tip SVC. Impression: 1. New small patchy airspace disease left lower lobe probably pneumonic. No parapneumonic effusion. This document has been electronically signed by: Matt Cunningham MD on 01/31/2025 06:47:49 Dictated By: Matt Cunningham MD Signed By: <Electronically signed by Matt Cunningham MD in OV> 01/31/2549 DD/ TD/TT: 01/31/25646 Cfo: [facility] External Provider IMG XR PROCEDURES Final Result * Influenza A B2 ID NOW (Choi) (01/31/2025 5:20 AM EDT) IDNOW SERIAL# [id number] [facility] Influenza A Negative Negative [facility] Influenza B2 Negative Negative [facility] Influenza A B2 Note See Note [facility] Comment:The Choi ID NOW In [...] AM EDT Generic External Data Provider LAB MICROBIOLOGY - GENERAL ORDERABLES Final Result [facility] [address] [place] [address] [phone] * COVID-19 ID NOW (CHOI) (01/31/2025 5:20 AM EDT) Pathologist [facility] IDNOW SERIAL# [id number] [facility] COVID-19 TEST Negative Negative [facility] COVID-19 NOTE See Note [facility] Comment: Results are for the identification of SARS-CoV2 RNA. TheSARS-CoV2 RNA is generally detectable in respiratory samplesduring the acute phase of infection. Positive results areindicative of the presence of SARS-CoV-2 RNA; clinicalcorrelation with patient history and other diagnosticinformation is necessary to determine patient infectionstatus. Positive results do not rule out bacterial infectionor co- infection with other viruses.Testing facilities within the [facility] and itsterritories are required to report all [...] use by authorized laboratories.Testing performed on the Choi ID NOW utilizing NAAT. 01/31/2025 5:20 AM EDT 01/31/2025 5:26 AM EDT us Generic External Data Provider LAB MOLECULAR TYESHA GNOSTICS ORDERABLES Final Result Performing Organization Address City/[facility]/ZIP Co de Phone Number [facility] [address] [place] [address] [phone] * (ABNORMAL) CBC auto differential (01/31/2025 5:20 AM EDT) White Blood Count 13.0(H) 4.8 - 10.8 X10*3/uL [facility] Red Blood Count 4.69 4.60 - 5.80 X10*6/uL [facility] Hemoglobin 13.6(L) 14.0 - 18.0 g/dl [facility] Hematocrit 39.5(L) 42.0 - 52.0 % [facility] Mean Corpuscular Volume 84.2 80.0 - 98.0 fL [facility] Mean Corpuscular Hemoglobin 29.0 27.0 - 33.0 pg [facility] Mean Corpuscular HGB Conc 34.4 31.0 - 36.0 g/dl [facility] Red Cell Distribution Width 17.1(H) 11.0 - 16.0 % [facility] Platelet Count 278 160 - 400 X10*3/uL [facility] Mean Platelet Volume 9.2(L) 9.4 - 12.4 fL [facility] Neutrophils Percent Auto 76.3(H) 45 - 73 % [facility] Imm Gran Pct Auto 0.6(H) 0.0 - 0.4 % [facility] Lymphocytes Percent Auto 16.3(L) 20 - 40 % [facility] Monocytes Percent Auto 6.1 2 - 11 % [facility] Eosinophils Percent Auto 0.3 0 - 4 % [facility] Basophils Percent Auto 0.4 0 - 2 % [facility] NRBC Pct Auto 0.3(H) 0.0 - 0.2 /100WBC [facility] Neutrophils Absolute Auto 10.0(H) 2.0 - 8.3 x10*3/uL [facility] Imm Gran Abs Auto 0.08(H) 0.00 - 0.03 X10*3/uL [facility] Lymphocytes Absolute Auto 2.1 1.2 - 4.9 X10*3/uL [facility] Monocytes Absolute Auto 0.8 0.1 - 1.2 X10*3/uL [facility] Eosinophils Absolute Auto 0.0 0.0 - 0.4 X10*3/uL [facility] Basophils Absolute Auto 0.1 0.0 - 0.2 X10*3/uL [facility] NRBC Abs Auto 0.040(H) 0.0 - 0.012 X10*3/uL [facility] 01/31/2025 5:20 AM EDT 01/31/2025 5:26 AM EDT us Generic External Data Provider LAB BLOOD ORDERAB LES Final Result [facility] [address] [place] [phone] * Lipase (01/31/2025 5:20 AM EDT) Pathologist [facility] Lipase 16 8 - 78 U/L [facility] 01/31/2025 5:20 AM EDT 01/31/2025 5:26 AM EDT Generic External Data Provider LAB BLOOD ORDERAB LES Final Result Performing Organization Address [facility]/ZIP Co de Phone Number [facility] [address] [place] [phone] * (ABNORMAL) Comprehensive Metabolic Panel (01/31/2025 5:20 AM EDT) Only the most recent of2 resultswithin the time period is included. Sodium 138 135 - 145 mmol/L [facility] Potassium 3.1(L) 3.3 - 5.1 mmol/L [facility] Chloride 95(L) 96 - 108 mmol/L [facility] Carbon Dioxide 26 22 - 29 mmol/L [facility] Anion Gap 20 12 - 20 [facility] Urea Nitrogen (BUN) 17(H) 9 - 16 mg/dL [facility] Creatinine, Serum 1.15 0.5 - 1.4 mg/dL [facility] Creatinine Clr Calc Pharmacy 87.3 [facility] Comment:eGFR (calculated fro m the MDRD study equation) and eCrCl(calculated from the Cockcroft-Gault equation) are based ondifferent parameters and may not yield comparable results.If eCrCl result is absurd, please check patient'sheight/weight. Estimated Glomerular Filt Rate >60 [facility] Comment:Chronic Kidney Disea se: Estimated GFR < 60 mL/min/1.32r5Ptmtkt Kidney Disease: Estimated GFR < 15 mL/min/1.73m2 Glucose 142(H) 60 - 115 mg/dL [facility] Calcium 9.6 8.4 - 10.2 mg/dL [facility] Bilirubin, Total 1.1(H) 0.0 - 1.0 mg/dL [facility] Aspartate Amino Transferase 24 5 - 37 U/L [facility] Alanine Aminotransferase 8 0 - 40 U/L [facility] Total Protein 8.3(H) 6.5 - 8.0 g/dL [facility] Albumin Level 4.6 3.5 - 5.0 g/dL [facility] Alkaline Phosphatase 113 39 - 117 U/L [facility] 01/31/2025 5:20 AM EDT 01/31/2025 5:26 AM EDT us Generic External Data Provider LAB BLOOD ORDERAB LES Final Result [facility] [address] [place] [phone] * Hemoglobin A1c (12/28/2024 9:35 AM EDT) Hemoglobin A1c 5.6 <6.0 % [facility] Comment:Hemoglobin A1C Refer ence Range Adults: 4.8 - 6.0 % Non diabetic: < 6.0 % Goal: < 7.0 %Additional Action Suggested: > 8.0 %Note: Hemoglobin A1c results are invalid for patients with abnormal amounts of HbF. Blood transfusions may impact the HbA1c concentration in the patient sample. Estimated Average Glucose 114 mg/dL [facility] Comment:eAG = Estimated ave rage glucose which is %A1C expressed asaverage glucose, using the formula of the K2I-QxniveyFrltqts Glucose study (ADAG), Diabetes Care, Vol.31,#8,Dec. 2007 Blood Venous blood specimen / Unknown 12/28/2024 9:35 AM EDT 12/28/2024 11:51 AM EDT Susannah Ryan MD LAB BLOOD ORDERABLES Final Res ult Performing Organization Address City/[facility]/ZIP Co de Phone Number [facility] [address] [place] [address] [phone] * Lipid Panel, Standard (12/28/2024 9:35 AM EDT) Triglycerides 85 <150 mg/dL [facility] Comment:Desirable Triglyceri de: less than 150 mg/dLBorderline High Triglyceride 150-199 mg/dLHigh Triglyceride: 200-499 mg/dLVery High Triglyceride: greater than or equal to 5OO mg/dL Cholesterol 136 <200 mg/dL [facility] Comment:Desirable Cholestero l: less than 200 mg/dLBorderline High Cholesterol: 200-239 mg/dLHigh Cholesterol: greater than 239 mg/dL LDL Cholesterol Calculated 72 <100 mg/dL [facility] Comment:Desirable LDL: less than 100 mg/dLNear Optimal/Above Optimal LDL: 110- 129 mg/dLBorderline High LDL: 130-159 mg/dLHigh LDL: 160-189 mg/dLVery High LDL: greater than or equal to 190 mg/dL HDL Cholesterol 47 >40 mg/dL [facility] Comment:Desirable HDL: great er than 40 mg/dL Note: This HDL assay may give artificially low results in patients with liver disease. Blood Venous blood specimen / Unknown 12/28/2024 9:35 AM EDT 12/28/2024 11:51 AM EDT us Susannah Ryan MD LAB BLOOD ORDERABLES Final Res ult Performing Organization Address [facility]/ZIP Co de Phone Number [facility] [address] [place] [address] [phone] * XR Ribs 3 Views Left w/ Chest (12/11/2024 1:40 PM EDT) Anatomical Region Laterality Modality Radiographic Trudi ging 12/11/2024 1:40 PM EDT Narrative 12/11/2024 2:24 PM EDT [address] [address] XRay Report Signed Patient: Jose Armando Luther MR#: [id number] : 1980 Acct:[id number] Age/Sex: 44 / M ADM Date: 12/11/24 Loc: HO.HHCX Attending Dr: Betty Mckeon MD Ordering Physician: Betty Mckeon MD Date of Service: 12/11/24 Procedure(s): XR ribs LT min 3V w CXR1V Accession Number(s): [id number] cc: Betty Mckeon MD EXAMINATION: XR RIBS [...] 12/11/24 1421 DD/ 1340 TD/TT: 12/11/24 1340 Cfo: Procedure Note Donotuseinterpreter, Image - 12/11/[address] [address] XRay Report Signed Patient: Jose Armando LutherMR#: [id number] : 1980Acct:[id number] Age/Sex: 44 / MADM Date: 12/11/24 Loc: HO.HHCX Attending Dr: Betty Mckeon MD Ordering Physician: Betty Mckeon MD Date of Service: 12/11/24 Procedure(s): XR ribs LT min 3V w CXR1V Accession Number(s): [id number] cc: Betty Mckeon MD EXAMINATION: XR RIBS [...] 12/11/24 1421 DD/ 1340 TD/TT: 12/11/24 1340 Cfo: eBtty Mckeon MD IMG XR PROCEDURES Edited R esult - Final from Last 3 Months Insurance [facility] STANDARD DENTAL-[facility] MEDICAID STAND ADULT Care Teams Plateman Relationship Specialty Start Date End Date Susannah Ryan MD [address] [place] [address] [place] [address] PCP - General Family Medicine 12/28/24 Horacio Brooks MD [facility] Hematology/Oncology 12/11/24 [facility] 02/06/25
--- OUTSIDE RECORDS SUMMARY | 2025-02-28 17:40 | XMS_ITS | Encounter Summary ---
Author Organization [employer] Address [address] [facility] [address] [place] [address] Care Team Providers Care Fruit Packer Face And Fill Name Role Phone Susannah Ryan MD Primary Care Provider [phone] Reason for Visit * Reason Onset Date Comments pt1 02/26/2025 Encounter Details Date Type Department Care Team (Late st Contact Info) Description 02/26/2025 Telephone [facility] [address] [place] [address] Susannah Ryan MD [address] [place] [address] pt1 Social History Tobacco Use Types Packs/Day Years [...] with others, in a hotel, in a jail, living outside on the street, on a [...] AM EDT documented as of this encounter Miscellaneous Notes * Telephone Encounter - Cindy Shepard - 02/26/2025 3:08 PM EDT Patient calling requesting PT1 Home Address verified: Y/N: Yes Provider name or facility name: [address] [place] [id number] Escort needed: Y/N: No Do you have a wheelchair: Y/N: No If yes- Manual or electric: Visits: 2x documented in this encounter Plan of Treatment Not on file documented as of this encounter Visit Diagnoses Not on filedocumented in this encounter Additional Health Concerns Assessment Noted Time PHQ-9 Depression Total Score: 0 12/29/19 9:13 AM EDT documented as of this encounter Care Teams Fruit Packer Face And Fill Relationship Specialty Start Date End Date Susannah Ryan MD [address] [place] [id number] PCP - General Family Medicine 12/28/24 Horacio Brooks MD [facility] Hematology/Oncology 12/11/24 [facility] 02/06/25 documented as of this encounter
== END 2025-02-28 14:02 | disposition home or self-care (01) ==
LOC: HO.HGS 13:43
PROVIDERS: PCP Family Medicine; Visit Provider Surgery
DX: K43.5 Parastomal hernia without obstruction or gangrene (principal)
CPT/HCPCS: 99024

== ENCOUNTER → 2025-02-28 13:42 | Outpatient (BNVA) | payer MEDICAID, SELFPAY | PROVIDERS: PCP Family Medicine; Visit Provider Surgery | DX: K43.5 Parastomal hernia without obstruction or gangrene (principal); Z98.890 Other specified postprocedural states | CPT/HCPCS: 99212 ==